=== PATIENT | female | born 1975 | race Caucasian/White ===

== ENCOUNTER 2019-01-05 10:01 | Day surgery (SDC) | payer OTHER, SELFPAY ==
[2019-01-02 15:29] VITALS: BMI 21.1
[2019-01-05] VITALS (16 sets, daily range): BP systolic 85–112; BP diastolic 31–72; PULSE 50–72; RESP 9–16; TEMP 35.9–37.3; O2SAT 97–100; BMI 21.1
[2019-01-05] MEDS: LACTATED RINGERS 1,000 ML 100 ML IV ×3 (10:35→19:53)
--- NOTE | 2019-01-05 11:19 | PM.HP.1 ---
History of Present Illness History of Present Illness Date Patient Seen: 01/05/19 Time Patient Seen: 11:19 Chief complaint: [id number] Narrative: Patient is a 43-year-old 2 para 2 who presents for a TVT (sling) and cystoscopy due to stress urinary incontinence. Patient History Medical History (Updated 01/01/19 @ 10:59 by Ashleigh Farnsworth) Asthma (Chronic ~1984) Endometriosis (Chronic) Pelvic relaxation (Acute) ALYSSA (stress urinary incontinence, female) (Acute) Surgical History (Updated 01/01/19 @ 10:59 by Ashleigh Farnsworth) Anesthesia (Resolved) History of foot surgery (Resolved ~2004) History of laparoscopy (Resolved ~1999) Family History (Updated 01/01/19 @ 11:00 by Ashleigh Farnsworth) Grandmother Diabetes mellitus Social History household members: spouse and children Smoking Status: Former smoker Family & Social History Family History (Updated 01/01/19 @ 11:00 by Ashleigh Farnsworth) Grandmother Diabetes mellitus Social History: household members spouse,children Tobacco & Substance use: Smoking Status Former smoker Meds Home Medications and Allergies Home Medications Medication Instructions Recorded Confirmed Type No Known Home Medications 10/16/18 01/02/19 History Allergies Allergy/AdvReac Type Severity Reaction Status Date / Time From WELLBUTRIN Allergy Unknown Uncoded 10/16/18 14:28 Penicillin Allergy Unknown Uncoded 10/16/18 14:28 SULFA (sulfonamide) Allergy Unknown Uncoded 10/16/18 14:28 Metoclopramide AdvReac Unknown Uncoded 10/16/18 14:28 Exam Vital Signs (past 8 hours): - 01/05/19 10:19 Temperature 98.5 F Pulse Rate 52 L Respiratory Rate 16 Blood Pressure 102/65 Pulse Oximetry 98 Oxygen Delivery Method Room Air Narrative Exam Narrative: HEENT: No thyromegaly, no anterior cervical or supraclavicular lymphadenopathy. Lungs:Clear to auscultation bilaterally, no wheezes. Cardiovascular: Regular rate and rhythm, no murmurs, rubs, or gallops. Abdomen: Well-healed laparoscopy scars. No hepatosplenomegaly. No masses palpable. External genitalia: Normal Vagina: Normal. Increased urethrovesical angle with Valsalva. Uterine prolapse, cystocele, rectocele. Cervix: Normal Bimanual exam: 6 Week size uterus. Mobile. Rectal: No masses. Assessment & Plan Assessment & Plan narrative: Assessment: 43-year-old 2 para 2 with stress urinary incontinence and increased urethrovesical angle with Valsalva Plan: TVT ( sling) and cystoscopy The risks, benefits, and alternatives to the procedure were explained to the patient. The risks including bleeding, infection, injury to the bladder, ureters, or urethra. She understands these risks and agrees to proceed. A full par Q was held and consent form was signed Time Spent With Patient Time with patient: 15-24 minutes
--- NOTE | 2019-01-05 11:21 | PM.PREOP ---
Pre-operative Note Interval Note History & Physical reviewed/Exam performed by Physician: Yes Changes to H&P: No
[2019-01-05] MEDS: CEFAZOLIN 2 GM/100 ML FROZ.PIGGY IV (11:40)
--- NOTE | 2019-01-05 11:58 | SUR.OPER ---
Lithotomy on padded OR bed, head on pillow, arms secured on padded arm boards at <90 degrees abduction. Legs secured in padded yellow fins stirrups.
[2019-01-05] MEDS: BUPIVACAINE 0.25% W/ EPI 30 ML VIAL INJ (12:00)
[2019-01-05] MEDS: SODIUM CHLORIDE 0.9% 100 ML INJ (12:31)
--- NOTE | 2019-01-05 13:00 | SUR.PHASEI ---
Pt slow to wake up, incisions to abdomen c/d/i. Taking ice chips with no nausea. Denies pain.
--- NOTE | 2019-01-05 13:38 | SUR.PHASEII ---
pt tolerating ice chips, remains very sleepy, partner is at bedside with pt, d/c instructions reviewed with verbalized understanding.
--- NOTE | 2019-01-05 14:08 | SUR.PHASEII ---
PT UP TO BEDSIDE COMMODE, UNABLE TO VOID, BLADDER SCANNER SHOWING 481CC URINE, WAITING FOR RETURN CALL FROM DR SANDRA
[2019-01-05] MEDS: HYDROCODONE/ACET 5/325 TABLET 1 TAB PO ×2 (14:31→16:32)
--- NOTE | 2019-01-05 14:38 | SUR.PHASEII ---
recieved order from dr tomlinson to straight cath pt, pt cath'd for 600cc clear yellow urine, pt stating she feels much better now but still has pain 4/10 and requesting pain pill, pt tolerating volodymyr dana and pretzels, denies any nausea.
--- NOTE | 2019-01-05 15:51 | SUR.PHASEII ---
UP TO BR, PT UNABLE TO VOID, BLADDER SCANNED FOR 178CC URINE, WAITING CALL FROM DR SANDRA.
--- NOTE | 2019-01-05 16:14 | SUR.PHASEII ---
Pt to bathroom, voided 10 ml clear urine with pale red streaks; bladder scanned for residual of >200. Dr. Joshi returned the phone call, plans to keep pt overnight with kern. Pt rated pain at 5/10, Rx obtained. Prior to giving it, she decided that she'd like to wait and see if her pain is better after having kern inserted.
--- NOTE | 2019-01-05 16:33 | SUR.PHASEII ---
Shell inserted by Marcin Larson RN; emptied 600ml of very pale, clear urine.
--- NOTE | 2019-01-05 16:41 | SUR.PHASEII ---
Report called to center; waiting for orders to transfer pt.
--- NOTE | 2019-01-05 16:51 | SUR.PHASEII ---
Pt feeling much better with bladder empty, reassured that this is within the normal range of post-op care, was tearful, but relaxed when we explained that this is why Dr. Joshi had her stay and that it sometimes happens. Pain is improving, she is relaxed and texting . Awaiting transfer orders.
--- NOTE | 2019-01-05 17:13 | SUR.PHASEII ---
1605 Received phone call from [facility] that was entering orders and that I cold bring her over. Pt to room BC1. Stood to transfer to the bed. Stable on feet. Dr Joshi talking with patient and her . No questions from staff.
--- NOTE | 2019-01-05 17:17 | PM.GYNOP.1 ---
Operative Date/Time/Diagnoses Date of procedure: 01/05/19 Time of procedure: 12:15 Pre-op diagnosis: Stress urinary incontinence Increased urethrovesical angle with Valsalva Post-op diagnosis: same Procedure & Clinicians Procedure: Procedures Operation Date: 01/05/19 11:15 Actual Procedures Side Surgeon p Tensionless Vaginal Tape w/ cystoscopy Roselyn Joshi MD Indications: Stress urinary incontinence Increased urethrovesical angle with Valsalva Surgeon: Roselyn Joshi Switchgear Repairer: Maru Herrera Anesthesia Type: General Operative Notes Findings: Increased urethrovesical angle with Valsalva TVT not in the bladder on cystoscopy Closure Type: not applicable Specimen(s): none Applied: catheter Estimated blood loss (mL): 10 Blood products transfused: none Procedure in detail: After informed consent was obtained, the patient was taken to the operating room where she was placed in the dorsal supine position. After adequate LMA general anesthesia was achieved, she was placed in the dorsal lithotomy position, and prepped and draped in the usual sterile fashion. A time-out was performed. The midline on the patient's abdomen was marked and 2 cm lateral to the midline. The patient was placed flat on the table with her thighs parallel to the floor. A rigid catheter was placed into the bladder. 100 cc of a dilute 25 cc of 0.25% Marcaine with epinephrine and 75 cc of saline were injected into the space of Retzius behind the pubic symphysis. A weighted speculum was placed into the vagina. Allis clamps were placed lateral to the urethral meatus approximately 1.5 cm from the meatus. 5 cc of 0.5% Marcaine with epinephrine were injected submucosally. A 1 cm incision was made. 10 cc of 0.25% Marcaine with epinephrine were injected along the proposed path of the TVT on each side with the bladder neck retracted away from that side. With the bladder neck retracted away from the patient's right side, the TVT was directed towards the patient's right shoulder. The urogenital diaphragm was perforated and this came up behind the pubic symphysis 2 cm lateral to the midline. The obturator was grasped with a Andrew. The TVT was pulled up. The bladder was filled with 240 cc of sterile water. A cystoscopy was performed and the bubble was seen at the dome of the bladder. There was no perforation. The cystoscope was removed. The TVT was further cinched. The patient was made to cough and there was no leakage of urine. With care not to over tighten the TVT the TVT was cut below the skin line suprapubically. The mucosa in the vagina was closed with 3 O Vicryl in a running interlocking suture. Hemostasis was achieved. Dermabond was placed over the suprapubic incisions. The weighted speculum was removed from the vagina. Approximately 100 cc of the sterile water was removed from the bladder. The catheter was removed from the bladder. Sponge, lap, and instrument counts were correct x2. The patient tolerated the procedure well, and was taken to PACU in stable condition. Complications: none Post-operative Condition: stable Disposition: PACU Plan for aftercare: Home after recovery
[2019-01-05] MEDS: IBUPROFEN 600 MG TABLET PO (18:11)
--- NOTE | 2019-01-05 18:32 | PC.NURSE ---
pt brought to BC01 via stretcher from recovery room in stable condition. VSS, remaining IVF's from PACU infusing. Dermabond glue over 2 small incision sites near pubic line, no drainage observed. F/c patent w/ clear yellow urine. Plan is to keep f/c in overnight and remove in am.
[2019-01-05] MEDS: OXYCODONE/ACETAMINOPHEN 5/325 TABLET 1 TAB PO (22:11)
[2019-01-06] MEDS: LACTATED RINGERS 1,000 ML 100 ML IV (03:59)
[2019-01-06] MEDS: IBUPROFEN 600 MG TABLET PO ×2 (05:28→11:05)
--- NOTE | 2019-01-06 05:42 | PC.NURSE ---
Patient has been sleeping since 29 with ear plugs and pillow over eyes, Resp rate was checked once an hour to assure breathing due to patient burying herself in her bed. Finally had to wake patient up and it was a startle for her to complete my assessment and vitals and remove patients catheter. We discussed the Plan for getting up and urinating by calling for help then will bladder scan her. Patient agreed she was medicated for pain also.
[2019-01-06 05:48] VITALS: BP 99/56; PULSE 57; RESP 17; TEMP 37.3; O2SAT 99
--- NOTE | 2019-01-06 05:56 | PC.NURSE ---
Patient has 2 lap sites on bilateral lower abd, both are free of erythema and drainage. Sites are sealed with dermabond.
[2019-01-06] MEDS: DOCUSATE 250 MG CAPSULE PO (07:43)
[2019-01-06] MEDS: OXYCODONE/ACETAMINOPHEN 5/325 TABLET 1 TAB PO (07:43)
[2019-01-06 08:16] VITALS: BP 110/65; PULSE 62; RESP 18; TEMP 37.1; O2SAT 99
--- NOTE | 2019-01-06 10:19 | PC.NURSE ---
discharge instructions verbalized to pt w/ her understanding. Prescription is being filled at our pharmacy. IV removed from right hand
[2019-01-06] MEDS: OXYCODONE/ACETAMINOPHEN 5/325 TABLET 2 TAB PO (10:50)
--- NOTE | 2019-01-06 12:54 | CM.DANOTE ---
DCP: assessment: note: case was received and discussed in Team Rounds. Pt is a 43 year old female who admitted to care of Dr. Joshi for a planned gynecological procedure. Payer: [facility]. A d/c to home order was put in. By time of Team Rounding was over the pt had already left for the home setting . No concerns re the d/c to home were identified by the care team staff.
--- NOTE | 2019-01-06 17:43 | PM.DS.1 ---
History of Present Illness History of Present Illness Date Patient Seen: 01/06/19 Time Patient Seen: 08:45 Chief complaint: [id number] Narrative: Patient is a 43-year-old 2 para 2 who presents for a TVT (sling) and cystoscopy due to stress urinary incontinence. Patient underwent the TVT with cystoscopy without complication. She was scheduled to go home on the same day, but had urinary retention. A Shell catheter was placed and she was kept overnight. On postop day # 1 the Shell catheter was removed at 5:30 a.m.. The patient voided within 2 hr, 400 cc of clear yellow urine, she had a 20 cc postvoid residual by scan. Her pain was well controlled. She was ambulating without assistance. No nausea or vomiting. She was tolerating a diet. She is discharged home to follow up at 2 weeks. Discharge Providers Provider Discharge Date: 01/06/19 Discharge provider: Roselyn Joshi MD Summary Hospital Course Discharge Diagnosis: TVT with cystoscopy Acute urinary retention postoperatively Hospital Course: The patient underwent a TVT with cystoscopy without complication on 01/05/2019. Postoperatively she had acute urinary retention and a Shell catheter was placed. Shell catheter was removed on the morning of postop day # 1. The patient was able to void within 2 hr and had 20 cc postvoid residual. Her voided volume was 400 cc. She is discharged home with a follow-up in 2 weeks. She is instructed to void every 2-3 hours and to set an alarm to void at least once at night. Status at Discharge Cognitive/behavioral status at discharge: oriented Functional status at discharge: independent ambulation Overall status at discharge: patient is progressing back to baseline Time Spent with Patient Time spent: Less than 30 minutes Exam Vital Signs (past 8 hours): Oxygen Delivery Method Room Air Narrative Exam Narrative: Generally: Patient is sitting up in bed, no acute distress Lungs: Clear to auscultation bilaterally Cardiovascular: Regular rate and rhythm Abdomen: Soft and flat. Good bowel sounds Incisions: Clean dry and intact with surgical glue Extremities: Negative Homans, no edema Discharge Plan Discharge Plan Patient Disposition: Home Discharge comment: Call with fever, chills, redness or drainage around the incision or bleeding vaginally more than spotting Discharge Med Rec/Prescriptions Prescriptions: New oxycodone-acetaminophen [Percocet] 5-325 mg tablet 1 tab PO Q4-6H PRN (Reason: pain) Qty: 14 RF: 0 oxycodone-acetaminophen [Percocet] 5-325 mg tablet 1 tab PO Q4-6H PRN (Reason: pain) Qty: 20 RF: 0 Follow up/Referrals: Roselyn Joshi MD [Physician] - 2 Weeks (please f/u w/ Dr. Joshi on Saturday, @ 1:45pm) Discharge Orders: Discharge (Order); Ordered 01/06/19 Ordered By: Roselyn Joshi Provider Discharge Instructions Diet: Regular Activity: No heavy lifting. Nothing more than a gal of milk Skin/Wound/Dressing Care Report to your healthcare provider any signs of infection, such as:: chills, fever, increased pain, unusual drainage and unusual redness Visit Report/Discharge Packet Instructions: Urinary Incontinence Surgery -- Sling Procedures Stand Alone Forms: Surgery Discharge Discharge Data Attending Provider: Roselyn Joshi Discharges patient from system. Discharge Date/Time: 01/06/19 11:25 Quality VTE Deep Vein Thrombosis/Pulmonary Embolism Present on Admission: No
== END 2019-01-06 11:25 | disposition home or self-care (01) ==
LOC: OR 12:21 → LABOR 17:41
PROVIDERS: Visit Provider Obstetrics & Gynecology
PROC: 0TSD0ZZ Reposition Urethra, Open Approach (ICD-10-PCS; CPT 57288; principal; 2019-01-05 11:15)
DX: N39.3 Stress incontinence (female) (male) (principal)
CPT/HCPCS: 57288; C1771; J0690; J1100; J2250; J2405; J2704; J3010

== ENCOUNTER 2019-12-06 19:09 | Emergency (ER) | payer MEDICARE, SELFPAY ==
[2019-01-05 19:39] VITALS: BMI 21.1
[2019-12-06 19:19] VITALS: BP 153/94; PULSE 84; RESP 16; TEMP 36.2; O2SAT 99; BMI 19.7
--- NOTE | 2019-12-06 19:27 | ED.EPISTAXIS ---
HPI - Epistaxis <Yuli Hardy PA-C - Last Filed: 12/06/19 21:46> General Chief complaint: Nasal Problem Stated complaint: facial injury a few days ago, nose fluid drainage Time Seen by Provider: 12/06/19 19:24 Source: patient Mode of arrival: Ambulatory History of Present Illness HPI Narrative: 44-year-old patient presents to the emergency department referred here by her primary care doctor after a telemedicine visit. She has had a constant 5/10 headache, facial pain and pressure, daily minor nose bleeds and recently some clear nasal discharge since she hit her face and nose on a counter on 3 days ago. She said she was Juggling her children and multiple things in her arms and she lost her balance and fell forward into a wooden counter it hit underneath her nose and then hit her forehead. She then fell down to the ground. She says her vision was black but she could hear everything around her. She then remained confused for a few minutes according to her memory and other people present at the time. Since that time she has had an ongoing intense achy headache and intense sinus pressure in the front of her head she had some swelling of her nose that has since improved, and she also feels like her vision has been a little bit different as if her eyes are uncomfortable with trying to focus. She had a significant nose bleed at the time of the event, and since then has had more minor, daily nose bleeds. Yesterday and today she had some clear nasal discharge in addition to minor nose bleeds. She notes she has had multiple minor concussions previously, none recent, also notes that when she was a child she fell 40 ft and was unconscious for a period of time and had a long recovery that included some long-term memory loss. She denies blurred vision, coordination difficulty, balance difficulty, nausea or vomiting, ear pain or discharge, active nosebleed, neck pain, syncope, other injury, or any other symptoms MD complaint: epistaxis and other (Head injury nasal injury) Location: bilateral nostril Onset (ago): day(s) (Three) Duration: intermittent and now resolved Context: trauma Associated symptoms: headache and sinus pain Treatment prior to arrival: nose pinching, head tilted back and other (No active nose bleed on presentation to emergency department today) Related Data Home Medications Medication Instructions Recorded Confirmed ibuprofen PO PRN 01/19/19 02/17/19 Previous Rx's Medication Instructions Recorded ysbxyxizne-gjpbuxcmihrvw-zpol 1 tab PO Q4H PRN #20 tab 12/06/19 Allergies Allergy/AdvReac Type Severity Reaction Status Date / Time From WELLBUTRIN Allergy Unknown Uncoded 12/06/19 19:23 Penicillin Allergy Unknown Uncoded 12/06/19 19:23 SULFA (sulfonamide) Allergy Unknown Uncoded 12/06/19 19:23 Metoclopramide AdvReac Unknown Uncoded 12/06/19 19:23 Review of Systems <Yuli Hardy PA-C - Last Filed: 12/06/19 21:46> Review of Systems Narrative: GENERAL: Denies chills, fatigue, malaise, fever, sweats. HEENT: Positive for sinus pain, nose pain, nosebleeds, nasal discharge, difficulty focusing with eyes, sinus pressure negative for ear pain, sore throat, difficulty swallowing, dizziness. RESPIRATORY: Denies dyspnea, cough, wheezing, hemoptysis, sputum. CARDIOVASCULAR: Denies chest pain, palpitations, orthopnea, edema, GASTROINTESTINAL: Denies nausea, vomiting, abdominal pain, diarrhea, constipation, melena. : Denies dysuria, frequency, incontinence, hematuria, urinary retention. MUSCULOSKELETAL: denies weakness, joint pain, or bony pain SKIN: Denies rash, skin lesions, or other NEUROLOGIC: Denies weakness, positive for headache, negative for numbness, change in speech, positive for brief episode of confusion after head injury on , seizures, incoordination. PSYCHIATRIC: No concerning psychosocial issues. 12 point review of systems is negative except for those stated above Patient History <Yuli Hardy PA-C - Last Filed: 12/06/19 21:46> Medical History Asthma (Chronic ~1984) Endometriosis (Chronic) Pelvic relaxation (Acute) ALYSSA (stress urinary incontinence, female) (Acute) Surgical History Anesthesia (Resolved) History of foot surgery (Resolved ~2004) History of laparoscopy (Resolved ~1999) History of stress incontinence procedure using tension free vaginal tape (Acute ~01/05/19) Family History Grandmother Diabetes mellitus Social History household members: spouse and children Smoking Status: Current every day smoker alcohol intake: never Smoking Status: Current every day smoker alcohol intake frequency: a few times a month Substance Use Type: marijuana Exam <Yuli Hardy PA-C - Last Filed: 12/06/19 21:46> Narrative Exam Narrative: GENERAL: 44 year old patient appears stated age. Well-nourished, well-developed patient, in mild distress. HEAD: There is mild bilateral swelling of the soft tissue of the nose. No hematoma noted. Atraumatic. Normocephalic. EYES: Pupils equal round and reactive. Extraocular motions intact except as below in neuro. No scleral icterus. No injection or drainage. ENT: Nose without bleeding, purulent drainage, nose is extremely tender to palpation, nasal passages are clear, visualized turbinates are pink, frontal sinuses are tender to palpation bilaterally, maxillary sinuses are nontender. Throat without erythema, tonsillar hypertrophy or exudate. Uvula midline. Airway patent. NECK: Trachea midline. Non tender, negative C-spine process tenderness, full active range of motion pain free CARDIOVASCULAR: Regular rate and rhythm without murmurs, gallops, or rubs. RESPIRATORY: Clear to auscultation. Breath sounds equal bilaterally. No wheezes, rales, or rhonchi. GASTROINTESTINAL: Abdomen soft, non-tender, nondistended. EXTREMITIES: No edema or joint tenderness. BACK: Nontender without deformity or crepitance. No flank tenderness. NEURO: AOx3. Strength is intact upper and lower extremities 5/5 bilaterally, sensation is intact. Cranial nerves are intact, with exception of extraocular movements, she has pain and difficulty completing vertical and lateral gaze bilaterally. No nystagmus. SKIN: No contusion or hematoma noted of the face or head. No rash or erythema of visible areas Initial Vital Signs Initial Vital Signs: Vital Signs Temperature 97.1 F L 12/06/19 19:19 Pulse Rate 84 12/06/19 19:19 Respiratory Rate 16 12/06/19 19:19 Blood Pressure 153/94 H 12/06/19 19:19 Pulse Oximetry 99 12/06/19 19:19 <DO Carlotta Moffett Last Filed: 12/06/19 21:49> Initial Vital Signs Initial Vital Signs: Vital Signs Temperature 97.1 F L 12/06/19 19:19 Pulse Rate 84 12/06/19 19:19 Respiratory Rate 16 12/06/19 19:19 Blood Pressure 153/94 H 12/06/19 19:19 Pulse Oximetry 99 12/06/19 19:19 Scores <DORON Avendano Last Filed: 12/06/19 21:46> GCS [place] coma scale eye opening: Spontaneous Diane coma scale verbal response: Orientated [place] coma scale motor response: Obey commands Diane coma scale total score: 15 Nexus Score for C-Spine Focal Neurologic deficit present: No Midline spinal tenderness present: No Altered level of conciousness present: No Intoxication present: No Distracting Injury Present: No Nexus Criteria for C-spine: 0 Course <DORON Avendano Last Filed: 12/06/19 21:46> Course Course Narrative: Spoke with ED attending Dr. Juarez about this patient's presentation and exam, agreed that CT facial bones and Head non-contrast is appropriate. Orders Ordered: ED Orders 12/06/19 20:04 CT facial bones wo con Stat CT head/brain wo con Stat Discontinued Medications Ketorolac Tromethamine (Toradol) 15 mg IM NOW ONE Stop: 12/06/19 21:01 Last Admin: 12/06/19 21:11 Dose: 15 mg Documented by: CAMPBELL Vital Signs Vital signs: Vital Signs - 8 hr 12/06/19 19:19 12/06/19 21:19 Temperature 97.1 F L Pulse Rate 84 75 Respiratory Rate 16 16 Blood Pressure 153/94 H 136/90 Pulse Oximetry 99 100 <DO Carlotta Moffett Last Filed: 12/06/19 21:49> Orders Ordered: ED Orders 12/06/19 20:04 CT facial bones wo con Stat CT head/brain wo con Stat Discontinued Medications Ketorolac Tromethamine (Toradol) 15 mg IM NOW ONE Stop: 12/06/19 21:01 Last Admin: 12/06/19 21:11 Dose: 15 mg Documented by: CAMPBELL Vital Signs Vital signs: Vital Signs - 8 hr 12/06/19 19:19 12/06/19 21:19 Temperature 97.1 F L Pulse Rate 84 75 Respiratory Rate 16 16 Blood Pressure 153/94 H 136/90 Pulse Oximetry 99 100 MDM - Epistaxis <Yuli Hardy PA-C - Last Filed: 12/06/19 21:46> Differential Diagnosis Differential diagnosis: Likely nasal bone fracture, anterior epistaxis, posterior epistaxis and other (orbital fracture, brain bleed, concussion) Medical Records Attestation: I reviewed the patient's medical records. Imaging Data Ct facial bones: Attestation: I personally reviewed and interpreted this imaging study as follows: Radiologist's Impression: [address] [address] [address] Scan Report Signed Patient: Blanca Braxton [facility] [place]#: [id number] : 1975Acct:[id number] Age/Sex: 44 / FDate of Service: 12/06/19 Loc: ED Accession Number: [id number] Procedure: CT facial bones wo con Ordering Provider: Yuli Hardy P.A-C PROCEDURE: CT FACIAL BONES WO CON INDICATIONS: face injury, headache, epistaxis, vision changes TECHNIQUE: Noncontrast 2.5 mm thick axial images acquired from the mandible through the frontal sinuses, with coronal and sagittal reformatting. For radiation dose reduction, the following was used: automated exposure control, adjustment of mA and/or kV according to patient size. COMPARISON: None. FINDINGS: Image quality: Excellent. Bones and teeth: Orbital denson are intact. Sinus denson show no fracture or deformity. Nasal bones and septum are intact. Visualized portions of the mandible demonstrate no fractures or subluxation. Zygomatic arches are intact. Pterygoid plates are intact. Visualized portions of the skull base and auditory canals are intact. Sinuses: Paranasal sinuses are aerated, without fluid levels, mucosal thickening, or mucoceles. Mastoid air cells are aerated. Soft tissues: No edema, masses, or fluid collections. No enlarged lymph nodes. No soft tissue lacerations or debris. Vascular: Visualized vascular structures appear normal in the absence of contrast. Bony vascular foramina and canals are intact. IMPRESSION: No fracture. Dictated by: Parisa Siegel MD, PhD on 12/06/2019 at 20:38 Approved by: Parisa Siegel MD, PhD on 12/06/2019 at 20:41 CT scan - head: Attestation: I personally reviewed and interpreted this imaging study as follows: Radiologist's Impression: [address] [address] [address] Scan Report Signed Patient: Blanca Braxton [facility]#: [id number] : 1975Acct:[id number] Age/Sex: 44 / FDate of Service: 12/06/19 Loc: ED Accession Number: [id number] Procedure: CT head/brain wo con Ordering Provider: Yuli Hardy P.A-C PROCEDURE: CT HEAD/BRAIN WO CON INDICATIONS: head injury, headache, vision changes TECHNIQUE: Noncontrast 4.5 mm thick angled axial sections acquired from the foramen magnum to the vertex, with coronal and sagittal reformats. For radiation dose reduction, the following was used: automated exposure control, adjustment of mA and/or kV according to patient size. COMPARISON: None. FINDINGS: Image quality: Limited by beam hardening artifact related to metallic earrings. CSF spaces: Basal cisterns are patent. No extra-axial fluid collections. The ventricles are symmetric in size and shape. Brain: No intracranial bleeds or masses. There is cerebral volume loss for age, with resultant ventricular and sulcal prominence. There are periventricular and deep white matter chronic small vessel ischemic changes. There is intracranial internal carotid artery atherosclerosis. Skull and face: Calvarium and visualized facial bones appear intact, without suspicious lesions. Sinuses: Visualized sinuses and mastoids are clear. IMPRESSION: No acute intracranial disease process. Dictated by: Parisa Siegel MD, PhD on 12/06/2019 at 20:36 Approved by: Parisa Siegel MD, PhD on 12/06/2019 at 20:38 [facility] Narrative Medical decision making narrative: This is an uncomfortable appearing 44-year-old with no significant medical history other than previous concussions including 1 as a child with long-term memory loss who presents to the emergency department complaining of ongoing 5/10 headache, difficulty focusing with her eyes, and daily nosebleeds since she hit her head 3 days ago. Neuro exam is unremarkable with exception of EOMs, difficulty with lateral and vertical gaze second to pain. Given her ongoing headache, ongoing nose bleeds and previous head injuries, CT facial bones and CT head noncontrast were performed, these were both negative for any acute process, fracture or bleed. Patient's headache was treated with Toradol in the emergency department, she was prescribed Fioricet for headaches, discussed the findings of the exam is, plan for follow-up with her primary care physician. Discussed concussion and possible ongoing symptoms related to this. Emergency return precautions provided, all questions answered. Discharge Plan Departure Patient Disposition: Home Clinical Impression: Frontal sinus pain, Pain of nose Head injury due to trauma Qualifiers: Encounter type: initial encounter Qualified Code(s): S09.90XA - Unspecified injury of head, initial encounter Headache Qualifiers: Headache type: post-traumatic Headache chronicity pattern: acute headache Intractability: not intractable Qualified Code(s): G44.319 - Acute post-traumatic headache, not intractable Concussion Qualifiers: Encounter type: initial encounter Loss of consciousness presence/duration: without LOC Qualified Code(s): S06.0X0A - Concussion without loss of consciousness, initial encounter Discharge Date/Time: 12/06/19 21:27 Instructions: DI for Concussion, DI for Nosebleed, DI for Post-traumatic Headache, DI for Closed Head Injury Activity Restrictions/Additional Instructions: Thank you for letting us to be part of your care in the emergency department today. Based on your history and your exam we did do CT scan of your facial bones and of your brain today. This did not show any evidence of fractures or bleeds in your brain or any other acute process that would require further workup today or admission to the hospital. You may continue to have problems with headaches as I suspect he sustained a concussion when you hit your head on . You can continue to take Tylenol and ibuprofen for pain but I have also provided prescription for headache medicine called Fioricet which may provide better relief if needed. Please continue to monitor for any new and concerning symptoms including changes in your vision, balance issues, worsening headache, fever, nausea or vomiting or any other symptoms of concern. There is no evidence of an emergent or life threatening illness at this time, but follow up with your doctor in 1-2 days is recommended nonetheless to continue to rule out serious underlying causes of your symptoms. Please call the office for an appointment. Please return to the Emergency Department for any worsening or persistent symptoms. Please take medications as directed. Prescriptions: New tquydcvnwf-yktdtwaugrgty-ajfs 50-325-40 mg tablet 1 tab PO Q4H PRN (Reason: pain) Qty: 20 RF: 0 No Action ibuprofen PO PRNRF: 0 Referrals: Isaac Acosta MD [Primary Care Provider] - <Jones Juarez DO - Last Filed: 12/06/19 21:49> [facility] Dr Juarez Co-Sign Statement: I was available for consultation during this patient's emergency department visit. This chart is signed by myself for administrative purposes only. I did not have direct contact with this patient during this visit. They were seen independently by the APC.
--- NOTE | 2019-12-06 20:04 | DI.CT.S_ITS ---
PROCEDURE: CT FACIAL BONES WO CON INDICATIONS: face injury, headache, epistaxis, vision changes TECHNIQUE: Noncontrast 2.5 mm thick axial images acquired from the mandible through the frontal sinuses, with coronal and sagittal reformatting. For radiation dose reduction, the following was used: automated exposure control, adjustment of mA and/or kV according to patient size. COMPARISON: None. FINDINGS: Image quality: Excellent. Bones and teeth: Orbital denson are intact. Sinus denson show no fracture or deformity. Nasal bones and septum are intact. Visualized portions of the mandible demonstrate no fractures or subluxation. Zygomatic arches are intact. Pterygoid plates are intact. Visualized portions of the skull base and auditory canals are intact. Sinuses: Paranasal sinuses are aerated, without fluid levels, mucosal thickening, or mucoceles. Mastoid air cells are aerated. Soft tissues: No edema, masses, or fluid collections. No enlarged lymph nodes. No soft tissue lacerations or debris. Vascular: Visualized vascular structures appear normal in the absence of contrast. Bony vascular foramina and canals are intact. IMPRESSION: No fracture. Dictated by: Parisa Siegel MD, PhD on 12/06/2019 at 20:38 Approved by: Parisa Siegel MD, PhD on 12/06/2019 at 20:41
--- NOTE | 2019-12-06 20:04 | DI.CT.S_ITS ---
PROCEDURE: CT HEAD/BRAIN WO CON INDICATIONS: head injury, headache, vision changes TECHNIQUE: Noncontrast 4.5 mm thick angled axial sections acquired from the foramen magnum to the vertex, with coronal and sagittal reformats. For radiation dose reduction, the following was used: automated exposure control, adjustment of mA and/or kV according to patient size. COMPARISON: None. FINDINGS: Image quality: Limited by beam hardening artifact related to metallic earrings. CSF spaces: Basal cisterns are patent. No extra-axial fluid collections. The ventricles are symmetric in size and shape. Brain: No intracranial bleeds or masses. There is cerebral volume loss for age, with resultant ventricular and sulcal prominence. There are periventricular and deep white matter chronic small vessel ischemic changes. There is intracranial internal carotid artery atherosclerosis. Skull and face: Calvarium and visualized facial bones appear intact, without suspicious lesions. Sinuses: Visualized sinuses and mastoids are clear. IMPRESSION: No acute intracranial disease process. Dictated by: Parisa Siegel MD, PhD on 12/06/2019 at 20:36 Approved by: Parisa Siegel MD, PhD on 12/06/2019 at 20:38
--- NOTE | 2019-12-06 20:16 | PC.NURSE ---
Patient reports hit nose on counter on . At time of incident fell to ground but denies LOC. At home has applied ice packs on and off. Comes to ED today because of continued nose bleeds and clear fluid coming out of nose. At time of assessment no discharge noted in either nare. Patient denies inflammation and no bruising noted. Patient affirms headache rated 7/10 and head pressure. Pupils equal and reactive. Patient alert and oriented x4.
[2019-12-06] MEDS: KETOROLAC 60 MG/2 ML VIAL 15 MG IM (21:11)
[2019-12-06 21:19] VITALS: BP 136/90; PULSE 75; RESP 16; O2SAT 100
== END 2019-12-06 21:27 | disposition home or self-care (01) ==
PROVIDERS: Emergency Provider Student in an Organized Health Care Education/Training Program; PCP Family Medicine; Referring Provider Family Medicine
DX: S06.0X0A Concussion without loss of consciousness, initial encounter (principal); G44.319 Acute post-traumatic headache, not intractable; J34.89 Other specified disorders of nose and nasal sinuses; W22.8XXA Striking against or struck by other objects, initial encounter
CPT/HCPCS: 70450; 70486; 96372; 99284; J1885

== ENCOUNTER → 2020-07-06 13:56 | Outpatient (CLI) | payer MEDICARE, SELFPAY ==
[2019-01-05 19:39] VITALS: BMI 21.1
[2020-07-06 16:18] LABS: COVID19 -Nasal RAPID Negative (Negative)
== END ==
PROVIDERS: PCP Family Medicine; Visit Provider Obstetrics & Gynecology
DX: Z01.812 Encounter for preprocedural laboratory examination (principal); Z20.822 Contact with and (suspected) exposure to COVID-19
CPT/HCPCS: 87635

== ENCOUNTER 2020-07-08 13:41 | Inpatient (IN) | payer MEDICARE, SELFPAY ==
[2019-01-05 19:39] VITALS: BMI 21.1
[2020-07-07] VITALS (44 sets, daily range): BP systolic 79–123; BP diastolic 38–70; PULSE 60–100; RESP 8–20; TEMP 35.9–36.8; O2SAT 90–100; BMI 20.5
--- NOTE | 2020-07-07 | PATH_ITS ---
[facility] Accession Number: [id number] . 01 Material submitted: . UTERUS AND BILATERAL FALLOPIAN TUBES - UTERUS AND BILATERAL FALLOPIAN TUBES . 02 Diagnosis: Uterus and Bilateral Fallopian Tubes, Hysterctomy and Bilateral Salpingectomy (Weight 146 grams): Cervix with patchy parakeratosis, consistent with clinical impression of prolapse. Mildly inflamed endocervix; negative for glandular dysplasia or malignancy. Weakly proliferative endometrium; negative for glandular hyperplasia, cytologic atypia, or malignancy. Myometrium with no significant histomorphologic abnormality. Uterine serosa with no significant histomorphologic abnormality. Right fallopian tube with no significant histomorphologic abnormality. Left fallopian tube with no significant histomorphologic abnormality. [facility] 07/12/2020 1043 Local . 02 Electronically signed: . Sweetie Cruz MD, Pathologist NPI- [id number] . 01 Gross description: . The specimen is received in formalin, labeled uterus and bilateral fallopian tubes, and consists of a 146 g uterus, cervix, and bilateral attached fallopian tubes. The specimen measures 10.0 cm from superior fundus to cervix by 5.5 cm from cornu to cornu by 4.5 cm from anterior to posterior. The serosa is tavera-pink and smooth. The tavera-pink, wrinkled ectocervix measures 5.0 x 4.5 cm. There is a 1.2 x 0.5 cm os. There is a tavera-pink herringbone endocervical mucosa. The endometrial cavity measures 4.5 x 2.0 cm and displays a tavera-pink, hemorrhagic, glistening endometrium measuring 0.2 cm in thickness. The myometrium is tavera-pink and diffusely trabeculated, measuring 2.1 cm in thickness. The right fallopian tube measures 8.5 cm in length by 1.0 cm in diameter. The left fallopian tube measures 7.5 cm in length by 1.0 cm in diameter. The serosa is pink-purple and smooth. Sectioning reveals a tavera-pink mucosa and a lumen measuring 0.5 cm in diameter. Film Reader sections are submitted. . A1: Anterior cervix. A2: Posterior cervix. A3-A4: Anterior uterus, full-thickness cross-sections. A7-A8: Right fallopian tube, central cross-sections and bisected fimbria. A9-A10: Left fallopian tube, bisected fimbria and central cross-sections. ([id number]) /[facility] 07/09/2020 [facility]2 Local . 02 Pathologist provided ICD-10: N81.4, N81.10, N81.6 . 02 CPT . 019249 Performed at: 01 [facility] [address] [id number] MD Silver Hays MD Phone: [phone] Performed at: 02 [facility] [address] [place], [place] [id number] MD Lili Freed MD Phone: [phone]
[2020-07-07] MEDS: LACTATED RINGERS 1,000 ML 42 ML IV ×5 (09:45→16:35)
--- NOTE | 2020-07-07 10:14 | PM.PREOP ---
Pre-operative Note COVID-19 COVID-19 status: Negative Result date/Date tested (Pos, Neg/Pending): 07/06/20 Interval Note History & Physical reviewed/Exam performed by Physician: Yes Changes to H&P: No H&P completed within 30 days and has changed as indicated here:: 07/06/20
[2020-07-07] MEDS: CEFAZOLIN 2 GM/100 ML FROZ.PIGGY IV (10:16)
--- NOTE | 2020-07-07 10:53 | SUR.OPER ---
Lithotomy on padded OR bed. [place] Pad Positioner under torso. Head on gel donut, arms padded and tucked at sides. Legs secured in padded yellow fins stirrups.
[2020-07-07] MEDS: BUPIVACAINE 0.25% W/ EPI (PF) 10 ML VIAL 20 ML INJ (11:38)
--- NOTE | 2020-07-07 12:48 | P.OP_ITS ---
Operative Date/Time/Diagnoses Date of procedure: 07/07/20 Time of procedure: 12:48 Pre-op diagnosis: Uterine prolapse, cystocele, and rectocele Post-op diagnosis: same Procedure & Clinicians Procedure: Procedures Operation Date: 07/07/20 10:15 Actual Procedures Side Surgeon p Laparoscopic Assisted Vag Hysterectomy w/ bilateral salpingectomy, Not Applicable Roselyn Joshi MD s Anterior/Posterior repair, sacrospinous ligament fixation Not Applicable Roselyn Joshi MD Indications: Uterine prolapse Cystocele and rectocele Surgeon: Roselyn Joshi Container Finishing Inspector: Katya Delvalle Anesthesia Type: General and Local Operative Notes Findings: Eight week size prolapsed uterus Second-degree cystocele Third-degree rectocele Normal appendix Normal liver Normal ovaries Normal tubes Closure Type: primary Specimen(s): left tube, right tube and uterus Applied: catheter (To continuous drainage) Estimated blood loss (mL): 75 Blood products transfused: none Procedure in detail: The patient was taken to the operating room where she was placed in the dorsal supine position. After adequate general endotracheal anesthesia was achieved, she was placed in the dorsal lithotomy position, and prepped and draped in the usual sterile fashion. A time-out was performed. A bivalve speculum was placed into the vagina, and a single-tooth tenaculum was placed on the anterior lip of the cervix. The cervical os was sequentially dilated until the ZUMI uterine manipulator could pass easily into the endometrial cavity. The single-tooth tenaculum was removed from the anterior lip of the cervix, and the bivalve speculum was removed from the vagina. Attention was then turned to the abdomen where 6 mL of half percent Marcaine with epinephrine were injected in the umbilical fold. A 5 mm incision was made. The Veress needle was placed into the peritoneal cavity, and its placement confirmed by aspiration and drop test. The abdominal cavity was insufflated with 4 L of CO2. The Veress needle was removed, and a 5 mm trocar was placed without difficulty. Initial inspection of the pelvis revealed the findings noted above. 2 other incisions were made midway between the pubic symphysis and umbilicus 4 cm lateral to the midline. These were 5 mm incisions. Two 5 mm trochars were placed under direct visualization. The right tube and ovary were grasped with an atraumatic grasper. The mesosalpinx on the right side was cauterized and cut with plasma kinetic. The round ligament and broad ligament were cauterized and cut. This was continued to the level of the uterine arteries. This was repeated on the patient's left side. The instruments were removed from the abdomen. The CO2 was allowed to escape. The trochars were covered with sterile towels. Attention was then turned to the vagina where the ZUMI uterine manipulator was removed from the uterus. The cervix was grasped with a 4 tooth tenaculum. 10 mL of quarter percent Marcaine with epinephrine were injected circumferentially around the cervix. The cervix was circumscribed. The bladder and rectum were dissected off the lower uterine segment and cervix with an open moistened Ray-Otf. The peritoneum was entered sharply with the Metzenbaum scissors anteriorly and a Beatrice placed. The peritoneum was entered posteriorly with the Metzenbaum scissors and the long weighted speculum was placed into the posterior cul-de-sac. The uterosacral cardinal ligament complexes were clamped, transected, and suture ligated with 0 Vicryl. These were attached to hemostat. The uterine arteries were clamped, transected, and suture ligated with 0 Vicryl. The uterus was handed off for specimen with the tubes and ovaries. The peritoneum was closed with a pursestring suture with 2-0 Vicryl. The vaginal cuff was closed with 0 Vicryl with a series of simple interrupted sutures. The tagged sutures were cut. 2 Allis clamps were placed at the apex of the cystocele. 6 mL of half percent Marcaine with epinephrine were injected and an incision was made with a #10 blade between the 2 Allis clamps. Wide Allis clamps were placed on the midline of the cystocele approximately 7. The mucosa was undermined using the Metzenbaum scissors and the mucosa incised in the midline moving the wide Allis clamps to the edges of the mucosa. The mucosa was dissected off the underlying fascia using an open moistened Ray-Otf and a #10 blade. The fascia was reapproximated with 0 Vicryl with a series of horizontal mattress sutures. The excess vaginal mucosa was excised. The mucosa was closed using simple interrupted sutures with 2-0 Vicryl including the underlying fascia to close the space. The weighted speculum was removed from the vagina. Allis clamps were placed at the mucocutaneous junction at the introitus. 6 mL of half percent Marcaine with epinephrine were injected. An incision was made with a #10 blade between the 2 Allis clamps, and a triangular piece of skin and underlying subcutaneous tissue was removed. Allis clamps were placed in the midline of the rectocele. 10 mL of half percent Marcaine with epinephrine were injected submucosally. The mucosa was undermined using the Metzenbaum scissors and the mucosa incised in the midline, moving the wide Allis clamps to the mucosal edges. The underlying fascia was dissected off of the mucosa using an open moistened Ray-Otf and a #10 blade. The perirectal space was dissected out bluntly. The ischial spine was located. The sacral spinous ligament was located. Using the Capio needle the Prolene suture was placed into the sacral spinous ligament. It was then attached to the vaginal apex. The fascia was reapproximated using 0 Vicryl with a series of horizontal mattress sutures. The excess vaginal mucosa was excised. The mucosa was closed using a series of simple interrupted sutures with 2-0 Vicryl including the underlying fascia to close the space. On the perineum 0 Vicryl was used to reapproximate the levator muscle. The subcutaneous layer was closed with 2-0 Vicryl. The skin was closed with 2-0 chromic in a subcuticular fashion. Hemostasis was achieved. A Betadine moistened vaginal pack was placed into the vagina. A rectal exam was done and there were no sutures palpable in the rectum. The urine was clear. Sponge, lap, and instrument counts were correct x-2. The patient tolerated the procedure well, was taken to PACU in stable condition. The retail store assistant during this case around the camera during the laparoscopy portion of hysterectomy. She did the right side of the uterus and right tube. Vaginally she retracted on either side while the remainder of the uterus was being removed. On the anterior and posterior repair she retracted and provided adequate visualization. She retracted during the sacral spinous ligament fixation. Complications: none Post-operative Condition: stable Disposition: PACU Plan for aftercare: To acute care after recovery
[2020-07-07] MEDS: fentaNYL 100 MCG/2 ML INJ IV ×2 (13:33→13:53)
[2020-07-07] MEDS: OXYCODONE/ACETAMINOPHEN 5/325 TABLET 1 TAB PO (13:50)
[2020-07-07] MEDS: ONDANSETRON 4 MG/2 ML INJ IV ×3 (13:57→22:02)
--- NOTE | 2020-07-07 14:41 | SUR.PHASEI ---
PACU NOTE; 1420: EULALIA PAD CHECK, COPIOUS BLEEDING TO SHEETS, BLANKETS AND SATURATED EULALIA-PAD. NOTIFIED ADDITIONAL PACU STAFF STAT. MD NOTIFIED STAT. MD AT BEDSIDE PROMPTLY. EVALUATED BLEEDING, ORDER FOR STAT HH AND TYPE AND CROSS FOR 2 U PRBC TO HOLD. MD PLANS TO TAKE PATIENT BACK TO OR. MANAGER CASH NOTIFIED ANESTHESIOLOGIST WHO IS ON HIS WAY. VS HAVE BEEN ON STABLE HYPOTENSIVE SIDE WITH IVF WIDE OPEN. 2CD IV STARTED TO LEFT AC. LAB HERE TO DRAW BLOOD. BLEEDING APPEARS TO HAVE SUBSIDED SINCE BLANKETS AND EULALIA-PAD CHANGED. CURRENT BP 102/49 WITH MAP 72. BOTH IV'S WITH FLUIDS LR WIDE OPEN. KEEN EMPTIED OF 250 URINE.
--- NOTE | 2020-07-07 14:43 | PM.EVENT ---
Event Note Date Patient Seen: 07/07/20 Time Patient Seen: 14:43 Event Note: Call to PACU for bright red bleeding and low blood pressure. Nurse reports that when she came back from the operating room she had nothing on a pad. 90 minutes later she had a large amount of blood with clots on the pad and checks underneath. Blood pressure dropped to 90s over 30s. Second IV put in. Fluids running wide open. Assessment: Postoperative bleeding Plan: Back to the operating room for examination under anesthesia and ligation of bleeder.
[2020-07-07] MEDS: SODIUM CHLORIDE 0.9% 1,000 ML 1000 ML IV (14:45)
[2020-07-07 14:58] LABS: Hemoglobin 8.5 g/dL (12.0-16.0)
--- NOTE | 2020-07-07 15:35 | SUR.OPER ---
Lithotomy on padded OR bed, head on pillow, arms secured on padded arm boards at <90 degrees abduction. Legs secured in padded yellow fins stirrups.
[2020-07-07] MEDS: LACTATED RINGERS 1,000 ML 100 ML IV ×3 (15:40→18:28)
[2020-07-07] MEDS: TRANEXAMIC ACID 1,000 MG in SODIUM CHLORIDE 0.9% 100 ML 400 ML IV (16:17)
[2020-07-07 16:31] LABS: Hematocrit 25.5 % (36-46); Hemoglobin 8.4 g/dL (12.0-16.0)
--- NOTE | 2020-07-07 17:37 | P.OP_ITS ---
Operative Date/Time/Diagnoses Date of procedure: 07/07/20 Time of procedure: 17:37 Pre-op diagnosis: Brisk vaginal bleeding Low blood pressure Post-op diagnosis: same Procedure & Clinicians Procedure: Procedures Operation Date: 07/07/20 10:15 Actual Procedures Side Surgeon p Laparoscopic Assisted Vag Hysterectomy w/ bilateral salpingectomy, Not Applicable Roselyn Joshi MD s Anterior/Posterior repair, sacrospinous ligament fixation Not Applicable Roselyn Joshi MD Operation Date: 07/07/20 14:45 Actual Procedures Side Surgeon p Exam Under Anesthesia DIE CASTING MACHINE OPERATOR - re-open incision, ligated bleeder, evacuation of clot Roselyn Joshi MD Indications: Brisk vaginal bleeding Low blood pressure Surgeon: Roselyn Joshi Motorboat Mechanic Inboard/Outboard: Maru Herrera Anesthesia Type: General Operative Notes Findings: Brisk bleeding from the posterior wall of the vagina Large amount of clot in the space between the fascia and mucosa as well as perirectal space Closure Type: primary Specimen(s): none Applied: catheter (To continuous drainage) Estimated blood loss (mL): 200 Blood products transfused: none Procedure in detail: .After informed consent was obtained, the patient was taken to the operating room where she was placed in the dorsal supine position. After adequate general endotracheal anesthesia was achieved, she was placed in the dorsal lithotomy position, and prepped and draped in the usual sterile fashion. A time-out was performed. A rectal exam was performed and there were no sutures into the rectum. Gloves were changed. The vaginal packing was removed from the vagina with a large amount clot. The sutures on the closure of the perineum as well as the posterior vaginal mucosa were opened and removed. Irrigation was performed with a large amount of clot in the perirectal space. There was a brisk bleeder on the posterior fascia. This was ligated with 2 0 Vicryl with a [id number] suture for hemostasis. The area was observed and there was no new bleeding noted. The posterior mucosa was closed with simple interrupted sutures with 2-0 Vicryl including the underlying fascia to close the space. On the perineum 0 Vicryl was used to reapproximate the levators. Two 0 Vicryl was used to close the subcutaneous layer. Two 0 chromic was used in a subcuticular fashion to close the skin. A Betadine moistened vaginal packing was placed into the vagina. Sponge, lap, and instrument counts were correct x2. The patient tolerated the procedure well, and was taken to PACU in stable condition. Complications: none Post-operative Condition: stable Disposition: PACU Plan for aftercare: To acute care after recovery
[2020-07-07] MEDS: KETOROLAC 30 MG/ML VIAL IV ×2 (18:28→23:37)
[2020-07-07] MEDS: ACETAMINOPHEN 325 MG TABLET 650 MG PO ×2 (18:28→23:36)
[2020-07-07] MEDS: OXYCODONE IR 5 MG TABLET PO (19:23)
[2020-07-07] MEDS: HYDROMORPHONE 0.5 MG INJ 0.1 MG IV (22:02)
[2020-07-08] VITALS (9 sets, daily range): BP systolic 79–117; BP diastolic 38–70; PULSE 72–86; RESP 14–20; TEMP 36.2–36.8; O2SAT 97–100
[2020-07-08] MEDS: DOCUSATE 250 MG CAPSULE PO ×3 (01:03→21:21)
[2020-07-08] MEDS: OXYCODONE IR 5 MG TABLET PO ×5 (01:03→21:21)
[2020-07-08] MEDS: LACTATED RINGERS 1,000 ML 100 ML IV ×2 (04:24→17:44)
[2020-07-08] MEDS: ACETAMINOPHEN 325 MG TABLET 650 MG PO ×3 (05:12→17:23)
[2020-07-08] MEDS: KETOROLAC 30 MG/ML VIAL IV ×2 (05:12→11:43)
[2020-07-08 05:30] LABS: Add Manual Diff / Slide Review NO; Basophils Absolute Auto 0 /uL (0-100); Basophils Percent Auto 0.2 % (0-2); Eosinophils Absolute Auto 0 /uL (0-450); Hemoglobin 7.3 g/dL (12.0-16.0); Lymphocytes Absolute Auto 700 /uL (1100-4500); Lymphocytes Percent Auto 4.3 % (25-40); Mean Corpuscular HGB Conc 32.9 % (30-36); Mean Corpuscular Hemoglobin 29.1 PG (26-34); Mean Corpuscular Volume 88.6 fL (80-100); Monocytes Absolute Auto 1000 /uL (0-900); Monocytes Percent Auto 5.8 % (3-14); Neutrophils Absolute Auto 15400 /uL (1500-7000); Neutrophils Percent Auto 89.7 % (50-75); Platelet Count 271 X10^3/uL (150-400); Red Blood Cell Count 2.52 X10^6/uL (4.0-5.2); White Blood Cell Count 17.2 X10^3/uL (4.5-11.0)
[2020-07-08 05:38] LABS: Hematocrit 22.3 % (36-46)
[2020-07-08] MEDS: HYDROMORPHONE 0.5 MG INJ 0.1 MG IV ×4 (06:56→19:02)
[2020-07-08] MEDS: ONDANSETRON 4 MG/2 ML INJ IV ×3 (06:57→21:16)
--- NOTE | 2020-07-08 15:36 | PC.NURSE ---
PT was in intense pain sitting, did not perform standing BP
--- NOTE | 2020-07-08 15:49 | PC.NURSE ---
Post-op: Pt having pain control concerns, Dr. Joshi made aware, see new order and extra dilaudid given. Pt reports she had better pain control after med. BP low 70's - 80's systolic. MD Joshi aware. Received 1 unit of blood, no sxs of transfusion reaction. BP systolic up to 100's now. Shell left in per md order. No clots seen vag. Nausea early and received zofran and med effective. Did sit at the bedside but pt reported to painful and dizzy to go further. However over all pt reports she has improved from this morning.
--- NOTE | 2020-07-08 16:20 | PM.PN.1 ---
Subjective Subjective Date Patient Seen: 07/08/20 Time Patient Seen: 16:21 Interval history: Patient is a 45-year-old 2 para 2 postop day # 1 status post LAVH/bilateral salpingectomy/anterior and posterior repair/sacral spinous ligament fixation. Patient had postoperative bleeding from the vagina while in the recovery room and was taken back to surgery and a bleeder on the posterior wall the vagina was ligated. This morning patient's hematocrit had dropped from 25-22. This had been expected. She was very symptomatic. She was tachycardic and very lightheaded when her bed was raised even a small amount. A decision was made to transfuse with 1 unit of packed red blood cells. Patient is feeling much better. She has had some lower abdominal cramping. She has tolerated a diet. She has good urine output. Exam Vital Signs (past 8 hours): - 07/08/20 08:35 07/08/20 11:20 07/08/20 14:10 Temperature 98.3 F 97.3 F L Pulse Rate 79 77 Pulse Rate [Orthostatic Lying] 72 Respiratory Rate 14 14 Blood Pressure 85/51 L 87/54 L Blood Pressure [Orthostatic Lying] 117/52 L Blood Pressure [Orthostatic Sitting] 112/70 Pulse Oximetry 07/08/20 15:52 Temperature 98.2 F Pulse Rate 74 Pulse Rate [Orthostatic Lying] Respiratory Rate 16 Blood Pressure 106/57 L Blood Pressure [Orthostatic Lying] Blood Pressure [Orthostatic Sitting] Pulse Oximetry 100 Oxygen Delivery Method Room Air Oxygen Flow Rate 0 Narrative Exam Narrative: Generally: Patient partially sitting up in bed. No acute distress Lungs: Clear to auscultation bilaterally Cardiovascular: Regular rate and rhythm Abdomen: Soft and flat. Good bowel sounds in all 4 quadrants. Incisions: Clean dry and intact with dressings. Perineum: Dry Extremities: SCDs in place Objective Labs Result Diagrams: 07/08/20 05:05 Labs: Laboratory Results - last 24 hr 07/07/20 07/07/20 07/08/20 14:51 16:15 05:05 WBC 17.2 H RBC 2.52 L Hgb 8.4 L 7.3 L Hct 25.5 L 22.3 L MCV 88.6 MCH 29.1 MCHC 32.9 RDW 13.0 Plt Count 271 Neut % (Auto) 89.7 H Lymph % (Auto) 4.3 L [place] % (Auto) 5.8 Eos % (Auto) 0.0 L Baso % (Auto) 0.2 Neut # (Auto) 65762 H Lymph # (Auto) 700 L [place] # (Auto) 1000 H Eos # (Auto) 0 Baso # (Auto) 0 Blood Type A Positive Antibody Screen Negative Crossmatch See Detail [facility] Medical History (Updated 05/29/20 @ 14:54 by Roselyn Joshi MD) Asthma (~1984) Endometriosis Pelvic relaxation ALYSSA (stress urinary incontinence, female) Surgical History Anesthesia History of foot surgery (~2004) History of laparoscopy (~1999) History of stress incontinence procedure using tension free vaginal tape (~01/05/19) Family History Grandmother Diabetes mellitus Social History household members: spouse and children Smoking Status: Current some day smoker alcohol intake: current Assessment & Plan Assessment & Plan narrative: Assessment: 45-year-old 2 para 2 postop day # 1 status post LAVH/bilateral salpingectomy/anterior and posterior repair/sacral spinous ligament fixation as well as a returned to the operating room for a ligation of a posterior wall of the vagina bleeder. Patient is stable Plan: Leave packing and Shell catheter in place until tomorrow morning H&H this evening COVID-19 COVID-19 status: Negative Result date/Date tested (Pos, Neg/Pending): 07/06/20 Time Spent With Patient Time with patient: 25 - 35 minutes
[2020-07-08] MEDS: IBUPROFEN 600 MG TABLET PO (17:25)
[2020-07-08 17:27] LABS: Hematocrit 24.2 % (36-46)
--- NOTE | 2020-07-08 18:06 | PC.NURSE ---
Addendum entered by Christi Chao R.N. 07/08/20 19:13: c/o pain cont at 6 medicated with 0.1 dilaudid ivp and ice pack. Original Note: pt is c/o low abd pain 6/10 medicated with oxy, tylenol and ibuprofen as ordered. drsg cdi and no vag bleeding noted. kern patent and draining clear light yellow urine. with monitor. taking sm bites of dinner, call light within reach.
[2020-07-09] VITALS (9 sets, daily range): BP systolic 100–120; BP diastolic 53–66; PULSE 63–97; RESP 14–18; TEMP 36.6–37.2; O2SAT 97–98
[2020-07-09] MEDS: ACETAMINOPHEN 325 MG TABLET 650 MG PO ×5 (00:27→23:47)
[2020-07-09] MEDS: HYDROMORPHONE 0.5 MG INJ 0.1 MG IV ×2 (00:27→22:42)
[2020-07-09] MEDS: IBUPROFEN 600 MG TABLET PO ×5 (00:27→23:48)
[2020-07-09] MEDS: OXYCODONE IR 5 MG TABLET PO ×7 (01:27→21:32)
[2020-07-09] MEDS: LACTATED RINGERS 1,000 ML 100 ML IV (03:02)
[2020-07-09] MEDS: ONDANSETRON 4 MG/2 ML INJ IV ×2 (08:29→14:39)
[2020-07-09] MEDS: DOCUSATE 250 MG CAPSULE PO ×2 (08:47→20:57)
--- NOTE | 2020-07-09 09:41 | P.PN_ITS ---
Subjective Subjective Date Patient Seen: 07/09/20 Time Patient Seen: 09:41 Interval history: Patient is a 45-year-old 2 para 2 postop day # 2 status post LAVH/bilateral salpingectomy/anterior and posterior repair/sacral spinous ligament fixation. She was taken back to the operating room from PACU for brisk vaginal bleeding. A bleeder was ligated. Overnight she has had a headache. She has some intermittent nausea. She feels like she is in a lot of pain. She feels this in the suprapubic and rectal area. She is passing flatus. She has tolerated a diet. She has not ambulated as of yet. Her catheter is still in place. The vaginal packing is still in place. Exam Vital Signs (past 8 hours): - 07/09/20 05:00 07/09/20 07:47 Temperature 98.2 F 98.9 F Pulse Rate 73 82 Respiratory Rate 18 17 Blood Pressure 120/64 101/60 Pulse Oximetry 98 97 Oxygen Delivery Method Room Air Oxygen Flow Rate 0 Narrative Exam Narrative: Generally: Patient partially sitting up in bed, no acute distress Lungs: Clear to auscultation bilaterally Cardiovascular: Regular rate and rhythm Abdomen: Soft and flat. Good bowel sounds. Incisions: Clean dry and intact with dressing Perineum: Dry Vagina: The packing was removed and is dry. Extremities: Negative Homans, no edema Objective Labs Result Diagrams: 07/08/20 17:22 Labs: Laboratory Results - last 24 hr 07/07/20 07/08/20 14:51 17:22 Hgb 8.0 L Hct 24.2 L Crossmatch See Detail COUNT INCLUDES THE [facility] Medical History (Updated 05/29/20 @ 14:54 by Roselyn Joshi MD) Asthma (~1984) Endometriosis Pelvic relaxation ALYSSA (stress urinary incontinence, female) Surgical History Anesthesia History of foot surgery (~2004) History of laparoscopy (~1999) History of stress incontinence procedure using tension free vaginal tape (~01/05/19) Family History Grandmother Diabetes mellitus Social History household members: spouse and children Smoking Status: Current some day smoker alcohol intake: current Assessment & Plan Post-op Postoperative Procedures: Procedures Operation Date: 07/07/20 10:15 Actual Procedures Side Surgeon p Laparoscopic Assisted Vag Hysterectomy w/ bilateral salpingectomy, Not Applicable Roselyn Joshi MD s Anterior/Posterior repair, sacrospinous ligament fixation Not Applicable Joelle Joshi MD Operation Date: 07/07/20 14:45 Actual Procedures Side Surgeon p Exam Under Anesthesia 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 Headache. Intermittent pain control. Not ambulating much. Postoperative plan: see orders, ambulate and voiding trials Postoperative plan narrative: SCDs while in bed, incentive spirometry H&H ordered Time Spent With Patient Time with patient: 15-24 minutes
--- NOTE | 2020-07-09 15:42 | CM.IDA ---
Addendum entered by PENELOPE Go 07/10/20 12:01: DC home today w/friend, patient much improved from yesterday. No needs indicated from this SPARERIBS TRIMMER JW Original Note: Initial DCP Assessment Note Patient is a 45 yo female, resident of [facility]. Patient is POD#2 s/p LAVH/bilateral salpingectomy/anterior and posterior repair/sacral spinous ligament fixation. According to Dr Joshi's prog note, patient recovering slowly and is encouraged to ambulate, w/cath removal and voiding trials today, home likely later today or tomorrow. Patient has a friend, Bhumika Jimenez listed as primary contact PCP: Isaac Acosta Payer: [facility] No needs expected from this SPARERIBS TRIMMER... will remain available in case any DC needs or concerns arise. DANNY
--- NOTE | 2020-07-09 15:54 | PC.NURSE ---
Pt has severe headache throughout the morning and into the afternoon; mod to severe pain to pelvic region; PO oxy and scheduled tylenol and ibuprofen; mild nausea, no emesis ;IV zofran; dizziness with standing, SBP and HR WNL; patient sat to chair for very short time, severe pain to rectum/vagina; Shell removed at 1050; @ 1300 void >500 mL; PRBCs infusing; SO in room
--- NOTE | 2020-07-09 17:54 | PC.NURSE ---
Patient up and walked in halls, walked about 20 ft and turned back to the room. Patient up to chair for a hour before getting back to bed. Blood transfusion compete. Patient showered and states she feels much better. Patient's overall appearance is improved as well. Support personal Karel at bedside with patient. Patient going to eat a little dinner. Reports pain improved since sched. medications were given. See MAR for details. Call light w/in reach, bed in low pos. aware to call w/ needs to get out of bed or anything else.
[2020-07-10 00:04] VITALS: BP 105/62; PULSE 71; RESP 18; TEMP 36.9; O2SAT 100
[2020-07-10] MEDS: OXYCODONE IR 5 MG TABLET PO ×3 (00:53→11:32)
[2020-07-10 05:15] VITALS: BP 97/60; PULSE 64; RESP 18; TEMP 36.6; O2SAT 98
[2020-07-10] MEDS: IBUPROFEN 600 MG TABLET PO ×2 (05:21→11:32)
[2020-07-10] MEDS: ACETAMINOPHEN 325 MG TABLET 650 MG PO ×2 (05:22→11:29)
[2020-07-10 07:45] VITALS: BP 120/74; PULSE 66; RESP 20; TEMP 36.8; O2SAT 99
[2020-07-10] MEDS: DOCUSATE 250 MG CAPSULE PO (08:14)
--- NOTE | 2020-07-10 08:41 | PC.NURSE ---
Assess- Patient given oxycodone for complaints of headache and rectal pain from sutures. Given a cup of coffee with cream and sugar and she is going to try and eat some of her banana. She states in the last couple of days she has been taking zofran but denied nausea when pain medication give. She has 3 lap sites that are all cdi and o bleeding from vaginal area, sutures intact to glory area. Patients visitor is sleeping on the couch.
--- NOTE | 2020-07-10 11:23 | PM.DS.1 ---
History of Present Illness History of Present Illness Date Patient Seen: 07/10/20 Time Patient Seen: 09:40 Chief complaint: OPB Narrative: Patient is a 45-year-old 2 para 2 postop day # 3 status post LAVH/bilateral salpingectomy/anterior and posterior repair/sacral spinous ligament fixation. She went back to the operating room from the PACU due to vaginal bleeding. She was found to have a bleeder on the posterior wall of the vagina and this was ligated. The clots were removed and the vagina irrigated. Her postoperative course has been slow with pain management. She also had some significant nausea. On postop day # 2 the Shell catheter and the vaginal packing were removed. She was able to void without significant postvoid residual. Pain has been managed with IV Toradol which was then switched to ibuprofen, Tylenol, and oxycodone. She did have 2 units of packed red blood cells due to symptomatic anemia. Today she is feeling well. She is tolerating a diet without nausea and vomiting. She is ambulating without assistance. She is passing flatus. She does have some pain around the anus. Discharge Providers Provider Date of admission: 07/08/20 13:41 Discharge Date: 07/10/20 Primary care physician: Isaac Acosta MD Discharge provider: Roselyn Joshi MD Summary Hospital Course Discharge Diagnosis: Uterine prolapse Cystocele and rectocele Postoperative bleeding requiring trip back to the operating room to ligate the bleeder Acute blood loss anemia Hospital Course: Patient is a 45-year-old 2 para 2 who presented on July 07, 2020 for a scheduled LAVH/bilateral salpingectomy/A&P repair/sacral spinous ligament fixation. She underwent this. The procedure was complicated by a postoperative bleed which was discovered in the PACU. She was taken back to the operating room where the clots were evacuated and the bleeder was ligated. The vagina was repacked. On postop day # 2, the Shell catheter and packing were removed. She has had a slow recovery. She required 2 units of packed red blood cells for symptomatic acute blood loss anemia. Today the patient is doing well. No nausea or vomiting. Pain controlled. Voiding without the catheter. Ambulating without assistance. Tolerating a diet. Status at Discharge Cognitive/behavioral status at discharge: oriented Functional status at discharge: independent ambulation Overall status at discharge: patient is progressing back to baseline Time Spent with Patient Time spent: Less than 30 minutes Exam Vital Signs (past 8 hours): - 07/10/20 05:15 07/10/20 07:45 Temperature 97.8 F 98.2 F Pulse Rate 64 66 Respiratory Rate 18 20 Blood Pressure 97/60 120/74 Pulse Oximetry 98 99 Oxygen Delivery Method Room Air Oxygen Flow Rate 0 Narrative Exam Narrative: Generally: Patient is sitting up in bed, no acute distress Lungs: Clear to auscultation bilaterally Cardiovascular: Regular rate and rhythm Abdomen: Soft and flat. Incisions: Clean dry and intact with dressing Extremities: Negative Homans, no edema Objective Labs Result Diagrams: 07/09/20 11:13 Labs: Laboratory Results - last 24 hr 07/07/20 07/09/20 14:51 11:13 Hgb 8.0 L Hct 24.0 L Blood Type A Positive Antibody Screen Negative Crossmatch See Detail [facility] Medical History (Updated 05/29/20 @ 14:54 by Roselyn Joshi MD) Asthma (~1984) Endometriosis Pelvic relaxation ALYSSA (stress urinary incontinence, female) Surgical History Anesthesia History of foot surgery (~2004) History of laparoscopy (~1999) History of stress incontinence procedure using tension free vaginal tape (~01/05/19) Family History Grandmother Diabetes mellitus Social History household members: spouse and children Smoking Status: Current some day smoker alcohol intake: current Discharge Assessment & Plan Assessment and Plan Assessment: Postop day # 3 status post LAVH/anterior-posterior repair/bilateral salpingectomy/sacral spinous ligament fixation Returned to the operating room for ligation of bleeder Patient doing well Plan of Treatment: Discharge to home Follow-up in 2 weeks for telehealth visit Follow-up in 6 weeks for inpatient postop visit Tylenol 650 mg every 6 hours Ibuprofen 600 mg every 6 hours Stool softener twice a day until back to normal Push fluids Call with fever, chills, redness or drainage around the incisions, or bleeding vaginally more than spotting to light Discharge Plan Discharge Plan Patient Disposition: Home Provider Discharge Comment: Call with fever, chills, redness or drainage around the incisions or bleeding vaginally more than spotting to light Ibuprofen 600mg every 6 hours Tylenol 650mg every 6 hours Stool softner twice a day until back to normal Dulcolax supp tomorrow if no bowel movement Empty bladder about every 3 hours Discharge orders & Medications Prescriptions: New oxycodone 5 mg tablet 5 mg PO .Q3hr PRN (Reason: pain) Qty: 30 RF: 0 Continued ibuprofen 600 mg PO Q6HR PRN (Reason: Pain (Scale Score 1-3)) RF: 0 bwmcqfbusl-vqoduxkvhrqom-bfwb 50-325-40 mg tablet 1 tab PO Q4H PRN (Reason: pain) Qty: 20 RF: 0 Follow up/Referrals: Roselyn Joshi MD [Physician] - 2 Weeks (2 week Telehealth visit 6 week in person post op check) Diet/Activity/Treatments Diet: Regular Activity: No heavy lifting, no more than a gallon of milk Skin/Wound/Dressing Care Report to your healthcare provider any signs of infection, such as:: chills, fever, increased pain, unusual drainage and unusual redness Dressing: Remove the pink dressings with attached guaze after a shower in 2-3 days Leave steri strips in place until they fall off Visit Report/Discharge Packet Instructions: Blood Transfusion, DI for Hysterectomy, DI for Laparoscopy, DI for Prescription Opioid Use Stand Alone Forms: Surgery Discharge Discharge Data Primary Care Provider: Isaac Acosta
[2020-07-10 11:24] VITALS: BP 110/81; PULSE 66; RESP 20; TEMP 36.6; O2SAT 100
== END 2020-07-10 11:45 | disposition home or self-care (01) | DRG 908 ==
LOC: OR 14:00 → AC 14:00
PROVIDERS: Admitting Provider Anesthesiology; PCP Family Medicine; Referring Provider Obstetrics & Gynecology; Visit Provider Obstetrics & Gynecology
PROC: 0UT9FZZ Resection of Uterus, Via Natural or Artificial Opening With Percutaneous Endoscopic Assistance (ICD-10-PCS; principal; 2020-07-07 10:15)
PROC: 0W3R7ZZ Control Bleeding in Genitourinary Tract, Via Natural or Artificial Opening (ICD-10-PCS; 2020-07-07 10:15)
PROC: 0W3R7ZZ Control Bleeding in Genitourinary Tract, Via Natural or Artificial Opening (ICD-10-PCS; CPT 57410; principal; 2020-07-07 14:45)
DX: N99.820 Postprocedural hemorrhage of a genitourinary system organ or structure following a genitourinary system procedure (principal); D62 Acute posthemorrhagic anemia; N81.3 Complete uterovaginal prolapse; R51.9 Headache, unspecified; F17.210 Nicotine dependence, cigarettes, uncomplicated; R11.0 Nausea
CPT/HCPCS: 36415; 36430; 57210; 57260; 57282; 58552; 81025; 85014; 85018; 85025; 86850; 86900; 86901; 87635; P9016; J0330; J0690; J1100; J1170; J1885; J2250; J2405; J2704; J3010

== ENCOUNTER → 2021-01-16 13:10 | Outpatient (CLI) | payer MEDICARE, SELFPAY ==
[2020-07-07 18:11] VITALS: BMI 20.5
[2021-01-16 19:27] LABS: Progesterone, Total 1.69 ng/mL
[2021-01-16 19:28] LABS: Free T4, Direct Thyroxine 1.13 ng/dL (0.78-2.19)
[2021-01-16 19:42] LABS: Estradiol, Total 54.6 pg/mL; Thyroid Stimulating Hormone 0.397 uIU/mL (0.47-4.68)
== END ==
PROVIDERS: PCP Family Medicine; Visit Provider Obstetrics & Gynecology
DX: N95.1 Menopausal and female climacteric states (principal)
CPT/HCPCS: 82670; 84144; 84439; 84443

== ENCOUNTER → 2021-06-05 09:09 | Outpatient (CLI) | payer MEDICARE, SELFPAY ==
[2020-07-07 18:11] VITALS: BMI 20.5
[2021-06-06 22:06] LABS: COVID19 - ORCAS (NP or Nasal) Negative (Negative)
== END ==
PROVIDERS: PCP Family Medicine; Visit Provider Physician Assistant
DX: Z20.822 Contact with and (suspected) exposure to COVID-19 (principal)
CPT/HCPCS: C9803; U0003

== ENCOUNTER → 2021-07-06 13:08 | Outpatient (CLI) | payer MEDICARE, SELFPAY ==
[2020-07-07 18:11] VITALS: BMI 20.5
[2021-07-06 19:30] LABS: Follicle Stimulating Hormone 1.66 mIU/mL
== END ==
PROVIDERS: PCP Family Medicine; Visit Provider Obstetrics & Gynecology
DX: R23.2 Flushing (principal)
CPT/HCPCS: 83001

== ENCOUNTER → 2022-04-19 12:56 | Outpatient (CLI) | payer MEDICARE, SELFPAY ==
[2020-07-07 18:11] VITALS: BMI 20.5
--- NOTE | 2022-04-19 | DI.RAD.S_ITS ---
PROCEDURE: FL HIP INJECTION MR/CT RT INDICATIONS: right hip pain TECHNIQUE: The indications, alternatives, benefits, risks, and complications of the procedure were explained to the patient. Written informed consent was obtained and placed in the chart. The hip was examined fluoroscopically with the legs fixed in slight internal rotation, and a site for needle placement chosen for entry into the hip joint from an anterior approach. Care was taken to locate the common femoral artery and vein beforehand. The skin was prepped and draped in a sterile fashion, and 1% Lidocaine infiltrated from skin down to joint capsule. A spinal needle was inserted into the joint, and a small amount of iodinated contrast media injected to confirm intra-articular placement of the needle tip. This was followed by approximately 10 mL dilute solution of a gadolinium containing MR contrast agent. The needle was removed and a dressing was applied. The patient was given postprocedural instructions and sent to the MR suite for imaging. COMPARISON: None. FINDINGS: A single fluoroscopic spot image demonstrates intra-articular location of injected iodinated contrast. IMPRESSION: Successful fluoroscopically guided administration of dilute Gadolinium solution into the hip joint for MR arthrogram. Dictated by: Hallie Chaudhary M.D. on 04/19/2022 at 16:25 Transcribed by: ISSAC on 04/19/2022 at 16:25 Approved by: Hallie Chaudhary M.D. on 04/19/2022 at 16:51
--- NOTE | 2022-04-19 13:01 | DI.MRI.S_ITS ---
PROCEDURE: MR HIP RT W CON INDICATIONS: right hip injury TECHNIQUE: After the administration of 10 mL of dilute intra-articular Gadolinium contrast, coronal STIR of the bony pelvis; coronal and oblique axial T1 spin echo with fat saturation, axial T2 fast spin echo with fat saturation, sagittal T1 spin echo with and without fat saturation of the involved hip. COMPARISON: None. FINDINGS: Image quality: Excellent. Bones and joints: Bone marrow of the pelvic ring and proximal femurs show normal signal throughout. No intraosseous lesions or fractures. No avascular necrosis of the femoral head. The visualized lower lumbar spine appears normally aligned. The ligamental, neck, and labral plicae appear normal where visualized. Tendons and ligaments: The gluteus medius and minimus tendons appear intact, without associated muscle atrophy. The nearby proximal iliotibial band also appears intact. The iliopsoas tendon appears intact, without adjacent bursal fluid collections or evidence for impingement syndrome. The origin of the hamstring tendon is intact at the ischial tuberosity, as well as the associated sacrotuberous ligament. The straight and reflected heads of the rectus femoris muscle origin appear intact, as well as the conjoint tendon. The ligamentum teres appears intact where visualized. Labrum and cartilage: The acetabular labrum appears intact throughout. Cartilage surface of the femoral head appears of normal thickness. No paralabral cysts. The alpha angle of the femur is within normal limits at less than 55 degrees. Soft tissues: Visualized muscles demonstrate normal bulk and internal signal. Quadratus femoris muscle demonstrates no internal edema to suggest ischiofemoral impingement. The proximal sciatic neurovascular bundle appears normal adjacent to the hamstring tendons. Bladder wall thickness is normal. Bowel loops are within normal limits. 52 mm diameter right adnexal cyst. Small amount of free fluid within the pelvis. IMPRESSION: 1. Negative evaluation of the right hip and labrum. 2. Right ovarian cyst; follow-up pelvic ultrasound in 6 weeks is recommended to ensure resolution, and to exclude underlying malignancy. Dictated by: Hallie Chaudhary M.D. on 04/19/2022 at 15:35 Transcribed by: ISSAC on 04/19/2022 at 15:37 Approved by: Hallie Chaudhary M.D. on 04/19/2022 at 16:49
== END ==
PROVIDERS: PCP Family Medicine; Referring Provider Family Medicine; Visit Provider Family Medicine
DX: S79.911A Unspecified injury of right hip, initial encounter (principal); N83.291 Other ovarian cyst, right side; M25.551 Pain in right hip; X58.XXXA Exposure to other specified factors, initial encounter
CPT/HCPCS: 27093; 73722; 77002

== ENCOUNTER → 2022-05-07 13:21 | Outpatient (CLI) | payer MEDICARE, SELFPAY ==
[2020-07-07 18:11] VITALS: BMI 20.5
--- NOTE | 2022-05-07 13:22 | DI.US.S_ITS ---
PROCEDURE: US PELVIC COMPLETE INDICATIONS: RIGHT OVARIAN CYST TECHNIQUE: Real-time scanning was performed of the pelvic organs, with image documentation. Additional endovaginal scanning was necessary due to incomplete visualization of the adnexal and endometrial structures by transabdominal scanning. COMPARISON: US, [facility]ETRICAL LTD, 11/24/2013, 11:44. US, OB COMPLETE 14WKS OR MORE, 07/21/2013, 13:33. FINDINGS: Uterus: Uterus is removed. Ovaries: The right ovary measures 3.8 x 2.2 x 3.5 cm, with a calculated ovarian volume of 14.8 cc. The left ovary measures 2.5 x 1.3 x 1.8 cm, with a calculated ovarian volume of 2.9 cc. Within the right ovary, there is a focus of heterogeneous echogenicity measuring 2.3 x 1.3 x 1.8 cm. There is increased peripheral vascularity. Multiple similar smaller areas are identified within the right ovary the largest measuring 1.7 cm. Other: No pathologic free abdominal or pelvic fluid. IMPRESSION: Focus of heterogeneous echogenicity within the right ovary most suggestive of hemorrhagic cysts. Additional smaller foci are present which may represent involuting cyst versus prominent follicles. We strive to produce accurate, complete, and clear reports of imaging services. To assist us in improving patient care, this report was composed using standard report templates and voice recognition software. Therefore, it may contain abnormal punctuation, insertions and/or omissions. Occasional wrong-word or sound-alike substitutions may occur. Though we review the report and make efforts to correct it, we do recommend that the report be read carefully in proper context to recognize any text inaccuracies. Dictated by: Millie Arnold M.D. on 05/07/2022 at 17:15 Approved by: Millie Arnold M.D. on 05/07/2022 at 17:17
--- NOTE | 2022-05-07 13:22 | DI.MG.S_ITS ---
BILATERAL DIGITAL SCREENING MAMMOGRAM 3D/2D WITH CAD: 05/07/2022 CLINICAL: Baseline exam. Routine screening. No prior exams were available for comparison. Both breasts are extremely dense, which lowers the sensitivity of mammography (category d />75% glandular tissue). Current study was also evaluated with a Computer Aided Detection (CAD) system. No significant masses, calcifications, or other findings are seen in either breast. IMPRESSION: NEGATIVE There is no mammographic evidence of malignancy. A 1 year screening mammogram is recommended. Please note patient's elevated lifetime risk and additional recommendation for MRI screening. Based on Tyrer-Cuzick model (a risk assessment model), the patient's lifetime risk is 22.3% and her 10 year risk is 4.3%. If a patient has an elevated risk, a more comprehensive evaluation should be considered and/or a referral to a genetic counselor. The [place] [employer], [employer], and NCCN Guidelines advise the consideration of Breast MRI as an adjunct to screening mammography in patients whose Lifetime risk to develop breast cancer is 20% or higher. This exam was interpreted at Station ID: [id number]. NOTE: For mammograms, a report in lay terms will be sent to the patient. Approximately 15% of breast malignancies will not be visualized mammographically. In the management of a palpable breast mass, a negative mammogram must not discourage biopsy of a clinically suspicious lesion. Electronically Signed By: Jose Jerome M.D. lc/:05/07/2022 15:49:51 letter sent: Normal Exam ACR BI-RADS Category 1: Negative [id number]
== END ==
PROVIDERS: PCP Family Medicine; Referring Provider Obstetrics & Gynecology; Visit Provider Obstetrics & Gynecology
DX: Z12.31 Encounter for screening mammogram for malignant neoplasm of breast (principal); N83.201 Unspecified ovarian cyst, right side
CPT/HCPCS: 76856; 77063; 77067

== ENCOUNTER → 2022-05-10 13:05 | Outpatient (CLI) | payer MEDICARE, SELFPAY ==
[2020-07-07 18:11] VITALS: BMI 20.5
[2022-05-11 09:47] LABS: Cancer Antigen 125 < 5.5 U/mL (0-35)
== END ==
PROVIDERS: PCP Family Medicine; Visit Provider Obstetrics & Gynecology
DX: N83.209 Unspecified ovarian cyst, unspecified side (principal); R14.0 Abdominal distension (gaseous)
CPT/HCPCS: 86304

== ENCOUNTER 2022-09-25 15:45 | Outpatient (RCR) | payer MEDICARE, SELFPAY ==
[2020-07-07 18:11] VITALS: BMI 20.5
--- NOTE | 2022-09-25 17:57 | PT.OIE ---
Current Diagnoses Pain in right hip (09/25/22) Pelvic and perineal pain (09/25/22) Past Medical History (Last Updated 08/16/21 @ 15:48 by Roselyn Joshi MD) Anorexia Anxiety disorder, unspecified Asthma (~1984) Complex partial seizure disorder Endometriosis abnormality affecting management of mother Major depressive disorder, single episode, unspecified Panic disorder [episodic paroxysmal anxiety] ALYSSA (stress urinary incontinence, female) Zoster without complications Past Surgical History (Last Updated 08/30/22 @ 08:44 by Maryam Snowden RN) Anesthesia History of foot surgery (~2004) History of laparoscopic-assisted vaginal hysterectomy (07/07/20) History of laparoscopy (~1999) History of stress incontinence procedure using tension free vaginal tape (~01/05/19) Visit Care Team Role Provider Type Isaac Acosta MD Family Provider Physician Primary Care Provider Specialty: Family Practice Address: [address], [address] Email: [email or web address] Roselyn Joshi MD Attending Provider Physician Referring Provider Specialty: Gynecology [employer] Address: [address] [place] [address], [facility] Email: [email or web address] Physical Therapy Initial Evaluation PT-OP-A Visit Information Start: 09/25/22 16:00 Freq: Status: Active Protocol: Document 09/25/22 16:00 [facility] (Rec: 09/25/22 17:26 [facility] [id number]) Out-Patient Physical Therapy Visit Information Visit Information Visit Type Initial Evaluation Visit Start Time 16:00 Visit Stop Time 16:55 Total Visit Minutes 55 Visit Number 1 Evaluation Information Evaluation Date 09/25/22 PT-OP-B Current Condition Start: 09/25/22 16:00 Freq: Status: Active Protocol: Document 09/25/22 16:00 [facility] (Rec: 09/25/22 17:26 [facility] [id number]) Current Condition History of Current Condition Onset Date December 2021 Current Complaints right sided hip pain 2/10 with hip ER 8/10 pain History of Current Condition history of R ovarian cyst and right sided hip pain She has had 2 surgeries the first one being a sling for her bladder and the second one was a full pelvic reconstruction in July 2020. 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 She laid in bed with covid for a month right before that happened. SHe feels it is painful as well as it stops. [place] is difficult Its super hard to move and its been this way for so long. She cant cross her leg in sitting PT-OP-C Subjective Start: 09/25/22 16:00 Freq: Status: Active Protocol: Document 09/25/22 16:00 [facility] (Rec: 09/26/22 10:27 [facility] [id number]) OP-PT Pain Assessment Location right anterior hip Pain Location Details pain in the right anterior hip Scale Used Numeric (0 - 10) Description- Other if pt moves her hip into ER her pain increases to a 8-9/10 at rest pain is Frequency Intermittent Variations/Patterns with hip ER especially if also in hip flexion PT-OP-F Manual Assessment Start: 09/25/22 16:00 Freq: Status: Active Protocol: Document 09/25/22 16:00 [facility] (Rec: 09/25/22 17:30 [facility] [id number]) Manual Assessments Soft Tissue Assessment Soft Tissue Mobility Assessment iliopsoas tightness B with betzaida test Joint Mobility Assessment Joint Mobility Assessment SI instability with + ASLR test when lifting the left leg the right side unlocks, right leg longer in supine, pt presents with pain with hip ER in a hip flexed position, there is a empty end feel PT-OP-I Pelvic Floor Start: 09/25/22 16:00 Freq: Status: Active Protocol: Document 09/25/22 16:00 [facility] (Rec: 09/26/22 10:22 [facility] [id number]) Pelvic Floor Assessment Pelvic Clock Pelvic Clock 3-6 Guarding,Tenderness,Tightness Contraction Ability Manual Muscle Testing Left 3 Manual Muscle Testing Right 3 Manual Muscle Testing Anterior 3 Manual Muscle Testing Posterior 3 Comments Pelvic Floor Comments there is no tenderness along the right lateral denson of the levator ani, the left lateral wall is guarded and tight with tenderness to palpation. No scar tissue noted along the right lateral wall. I did palpate the deep hip ER, the obturator internus and was unable to elicit any tenderness right side. PT-OP-J Posture/Palpation/Skin Start: 09/25/22 16:00 Freq: Status: Active Protocol: Document 09/25/22 16:00 [facility] (Rec: 09/26/22 10:18 [facility] [id number]) Posture Evaluation Comments Posture Comments pt stands in a position of gluteal guarding and a posterior pelvic tilt, she sits in a sacral sit position Palpation Assessment Location right adductor attachment to the pubic ramus Palpation Findings Soft Tissue Tightness,Muscle Guarding,Tenderness PT-OP-K Range of Motion Start: 10/02/22 17:55 Freq: Status: Active Protocol: Document 09/25/22 17:55 [facility] (Rec: 10/02/22 17:57 [facility] [id number]) Hip Goniometric Range of Motion Hip Right Hip ROM WFL Yes Testing Position Supine External Rotation 25 Comments pain with hip external rotation combined with hip flexion, full hip flexion ROM without any c/o anterior pinching pain Hip ROM Limitations Hip ROM Limitations Pain Comments pain with hip ER PT-OP-M Strength Start: 09/25/22 16:00 Freq: Status: Active Protocol: Document 09/25/22 17:57 [facility] (Rec: 10/02/22 17:57 [facility] [id number]) Hip Strength Hip Manual Muscle Testing Left Flexion (L2) 4- Good- Abduction 4- Good- External Rotation 2+ Poor+ PT-OP-Q Treatments Start: 09/25/22 16:00 Freq: Status: Active Protocol: Document 09/25/22 16:00 [facility] (Rec: 09/25/22 17:29 [facility] [id number]) Therapeutic Exercises Supine Exercises quadruped rock backs Reps/Minutes 10 reps 1-2 times per day Comments pt was educated in using a strap to provide a inferior glide with rock back Manual Therapy Treatment Joint Mobilizations MWM hip lateral glide with hip ER Reps/Duration x 10 reps MWM hip distraction with flexion Joint right hip Direction interior glide Body Position Hooklying Reps/Duration x 10 reps PT-OP-T Assessment and Plan Start: 09/25/22 16:00 Freq: Status: Active Protocol: Document 09/25/22 16:00 [facility] (Rec: 09/27/22 17:18 [facility] [id number]) Physical Therapy Assessment Rehab Potential Rehabilitation Potential Good Evaluation Complexity Number of Personal Factors/Comorbidities 0 Number of Body Systems Impaired 1-2 Clinical Presentation at Evaluation Stable Impairments Impairments Activity Tolerance,Functional Activities,Pain,Posture,ROM, Soft Tissue Mobility,Strength, Tone Goals 3 Impairment Decreased right hip ER combined with flexion creating anterior hip pain Usp Goal (LTG) With manual therapy techniques Blanca is able to improve her painfree hip ROM into hip ER. LTG Duration 12 weeks 2 Impairment SI instability with + ASLR test Short Term Goal (STG) pt is educated in SI stabilization exercises to promote hip mobility with out the SI rocking STG Duration 4 weeks Almond Huller Goal (LTG) Blanca is able to perform a supine march with core activation without her pelvis rocking LTG Duration 12 weeks 1 Impairment hip pain rated 8-9/10 if pt ER her right hip especially with hip flexion, pain is rated 2/ 10 at rest Usp Goal (LTG) Giovanni reports a overall reduction in hip pain and has improved ability to perform hip ER LTG Duration 12 weeks Assessment Summary Assessment Blanca is a 47 year old female referred to PT with right sided hip pain that started with a insidious onset after being sick with covid in December of 2021. Pain is rated as a 2/10 at rest and 8/10 with hip ER. Hip flexion with hip ER is severly painful. 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 She was referred to a PT on [place] who felt she had a labral tear. She was sent for a MRI but no tear was found. A right ovarian cyst was found on MRI. With exam today she does present with a empty end feel for hip flexion combined with hip ER. She is able to perform full hip flexion though without pain. There is tightness in the adductors on the right side and there is some tightness in the iliopsoas B. Her SI does show signs of instability as she rocks in her pelvis with any hip movement in a supine position. She test + for ASLR test on the left affecting the right SI joint. Right leg is longer in supine . I did do a pelvic floor exam as she has a history of pelvic surgery with a TVT sling. There was no reproduction of pain with pelvic floor examination, no pain over the deep hip ER ( obturator internus), no pain at the sacralspinous ligament. She is able to contract all denson of her levator ani but she does have some weakness of the pelvic floor. I did try some gentle hip inferior glides today and hip WMW for ER. She did not gain any immediate relief with this. It does seem that the pain is centralized from the anterior hip and labral region, however SI instability could be contributing to her pain. PT will work on stabilizing the SI joint and working on improving hip mobility into ER with manual therapy techniques. I did feel she may benefit from a ortho consult as well as she has not seen ortho yet. Physical Therapy Plan Frequency and Duration Frequency of Treatment 1x/Week Duration of treatment (weeks) 12 Plan of Care Start Date 09/25/22 Plan of Care End Date 12/18/22 Therapeutic Interventions Therapeutic Interventions Home Exercise Program,Manual Therapy,Neuromuscular Re- education,Patient/Caregiver Education,Self-Care/Home Management,Soft Tissue Mobilization,Therapeutic Exercises Next Visit Focus/Plan Next Note Type Treatment Note Next Visit Plan Work on manual therapy treatments focusing on decompression of the right hip , SI stabilization exercises and inner core stability.
--- NOTE | 2022-09-25 17:58 | PT.OPPOC ---
Physical, Occupational & Speech Therapy At [facility] Current Diagnoses Pain in right hip (09/25/22) Pelvic and perineal pain (09/25/22) Visit Care Team Role Provider Type Isaac Acosta MD Family Provider Physician Primary Care Provider Specialty: Family Practice Address: [address], [place], [address] Email: [email or web address] 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 Address: [address] [place] [address], [id number] Email: [email or web address] Plan Of Care PT-OP-T Assessment and Plan Start: 09/25/22 16:00 Freq: Status: Active Protocol: Document 09/25/22 16:00 [facility] (Rec: 09/27/22 17:18 [facility] [id number]) Physical Therapy Assessment Rehab Potential Rehabilitation Potential Good Evaluation Complexity Number of Personal Factors/Comorbidities 0 Number of Body Systems Impaired 1-2 Clinical Presentation at Evaluation Stable Impairments Impairments Activity Tolerance,Functional Activities,Pain,Posture,ROM, Soft Tissue Mobility,Strength, Tone Goals 3 Impairment Decreased right hip ER combined with flexion creating anterior hip pain Chief Specialist Leed Goal (LTG) With manual therapy techniques Blanca is able to improve her pain free hip ROM into hip ER. LTG Duration 12 weeks 2 Impairment SI instability with + ASLR test Short Term Goal (STG) pt is educated in SI stabilization exercises to promote hip mobility with out the SI rocking STG Duration 4 weeks [facility] Goal (LTG) Blanca is able to perform a supine march with core activation without her pelvis rocking LTG Duration 12 weeks 1 Impairment hip pain rated 8-9/10 if pt ER her right hip especially with hip flexion, pain is rated 2/ 10 at rest [facility] Goal (LTG) Blanca reports a overall reduction in hip pain and has improved ability to perform hip ER LTG Duration 12 weeks Assessment Summary Assessment Blanca is a 47 year old female referred to PT with right sided hip pain that started with a insidious onset after being sick with covid in December of 2021. Pain is rated as a 2/10 at rest and 8/10 with hip ER. Hip flexion with hip ER is severely painful. 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 She was referred to a PT [place] who felt she had a labral tear. She was sent for a MRI but no tear was found. A right ovarian cyst was found on MRI. With exam today she does present with a empty end feel for hip flexion combined with hip ER. She is able to perform full hip flexion though without pain. There is tightness in the adductors on the right side and there is some tightness in the iliopsoas B. Her SI does show signs of instability as she rocks in her pelvis with any hip movement in a supine position. She test + for ASLR test on the left affecting the right SI joint. Right leg is longer in supine . I did do a pelvic floor exam as she has a history of pelvic surgery with a TVT sling. There was no reproduction of pain with pelvic floor examination, no pain over the deep hip ER ( obturator internus), no pain at the sacral spinous ligament. She is able to contract all denson of her levator ani but she does have some weakness of the pelvic floor. I did try some gentle hip inferior glides today and hip WMW for ER. She did not gain any immediate relief with this. It does seem that the pain is centralized from the anterior hip and labral region, however SI instability could be contributing to her pain. PT will work on stabilizing the SI joint and working on improving hip mobility into ER with manual therapy techniques. I did feel she may benefit from a ortho consult as well as she has not seen ortho yet. Physical Therapy Plan Frequency and Duration Frequency of Treatment 1x/Week Duration of treatment (weeks) 12 Plan of Care Start Date 09/25/22 Plan of Care End Date 12/18/22 Therapeutic Interventions Therapeutic Interventions Home Exercise Program,Manual Therapy,Neuromuscular Re- education,Patient/Caregiver Education,Self-Care/Home Management,Soft Tissue Mobilization,Therapeutic Exercises Next Visit Focus/Plan Next Note Type Treatment Note Next Visit Plan Work on manual therapy treatments focusing on decompression of the right hip , SI stabilization exercises and inner core stability. Plan of Care Dates Plan of Care Start Date 09/25/22 Plan of Care End Date 12/18/22 Electronically Signed by: Sariah Jurado, PT 10/02/22 1759 If you are in agreement with this Plan of Care, please return a signed and dated copy. I have reviewed this Plan of Care and certify that the skilled therapy services above are required to meet the patient?s needs. Physician Signature Date Printed Name and Credentials Clinical Instructor Signature Printed Name and Credentials
--- NOTE | 2023-01-15 11:04 | PT.OPDS ---
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 Obstetrics Address: [address] [place] [address], [id number] Email: [email or web address] Visit Number Visit Number 1 Discharge Summary PT-OP-B Current Condition Start: 09/25/22 16:00 Freq: Status: Active Protocol: Document 09/25/22 16:00 [facility] (Rec: 09/25/22 17:26 [facility] [id number]) Current Condition History of Current Condition Onset Date December 2021 Current Complaints right sided hip pain 2/10 with hip ER 8/10 pain History of Current Condition history of R ovarian cyst and right sided hip pain She has had 2 surgeries the first one being a sling for her bladder and the second one was a full pelvic reconstruction in July 2020. 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 She laid in bed with covid for a month right before that happened. SHe feels it is painful as well as it stops. [place] is difficult Its super hard to move and its been this way for so long. She cant cross her leg in sitting PT-OP-C Subjective Start: 09/25/22 16:00 Freq: Status: Active Protocol: Document 09/25/22 16:00 [facility] (Rec: 09/26/22 10:27 [facility] [id number]) OP-PT Pain Assessment Location right anterior hip Pain Location Details pain in the right anterior hip Scale Used Numeric (0 - 10) Description- Other if pt moves her hip into ER her pain increases to a 8-9/10 at rest pain is Frequency Intermittent Variations/Patterns with hip ER especially if also in hip flexion PT-OP-F Manual Assessment Start: 09/25/22 16:00 Freq: Status: Active Protocol: Document 09/25/22 16:00 [facility] (Rec: 09/25/22 17:30 [facility] [id number]) Manual Assessments Soft Tissue Assessment Soft Tissue Mobility Assessment iliopsoas tightness B with betzaida test Joint Mobility Assessment Joint Mobility Assessment SI instability with + ASLR test when lifting the left leg the right side unlocks, right leg longer in supine, pt presents with pain with hip ER in a hip flexed position, there is a empty end feel PT-OP-I Pelvic Floor Start: 09/25/22 16:00 Freq: Status: Active Protocol: Document 09/25/22 16:00 [facility] (Rec: 09/26/22 10:22 [facility] [id number]) Pelvic Floor Assessment Pelvic Clock Pelvic Clock 3-6 Guarding,Tenderness,Tightness Contraction Ability Manual Muscle Testing Left 3 Manual Muscle Testing Right 3 Manual Muscle Testing Anterior 3 Manual Muscle Testing Posterior 3 Comments Pelvic Floor Comments there is no tenderness along the right lateral denson of the levator ani, the left lateral wall is guarded and tight with tenderness to palpation. No scar tissue noted along the right lateral wall. I did palpate the deep hip ER, the obturator internus and was unable to elicit any tenderness right side. PT-OP-J Posture/Palpation/Skin Start: 09/25/22 16:00 Freq: Status: Active Protocol: Document 09/25/22 16:00 [facility] (Rec: 09/26/22 10:18 [facility] [id number]) Posture Evaluation Comments Posture Comments pt stands in a position of gluteal guarding and a posterior pelvic tilt, she sits in a sacral sit position Palpation Assessment Location right adductor attachment to the pubic ramus Palpation Findings Soft Tissue Tightness,Muscle Guarding,Tenderness PT-OP-K Range of Motion Start: 10/02/22 17:55 Freq: Status: Active Protocol: Document 09/25/22 17:55 [facility] (Rec: 10/02/22 17:57 [facility] [id number]) Hip Goniometric Range of Motion Hip Right Hip ROM WFL Yes Testing Position Supine External Rotation 25 Comments pain with hip external rotation combined with hip flexion, full hip flexion ROM without any c/o anterior pinching pain Hip ROM Limitations Hip ROM Limitations Pain Comments pain with hip ER PT-OP-M Strength Start: 09/25/22 16:00 Freq: Status: Active Protocol: Document 09/25/22 17:57 [facility] (Rec: 10/02/22 17:57 [facility] [id number]) Hip Strength Hip Manual Muscle Testing Left Flexion (L2) 4- Good- Abduction 4- Good- External Rotation 2+ Poor+ PT-OP-T Assessment and Plan Start: 09/25/22 16:00 Freq: Status: Active Protocol: Document 01/15/23 11:03 [facility] (Rec: 01/15/23 11:04 [facility] [id number]) Physical Therapy Assessment Assessment Summary Assessment Igor has not returned to PT since her initial visit . She will be discharged from PT at this time Physical Therapy Plan Discharge Physical Therapy Discharge Reasons No Longer Attending PT
== END 2023-01-21 08:02 | disposition home or self-care (01) ==
LOC: PHYS 15:45
PROVIDERS: Family Provider Family Medicine; PCP Family Medicine; Referring Provider Obstetrics & Gynecology; Visit Provider Obstetrics & Gynecology
DX: M25.551 Pain in right hip (principal); R10.2 Pelvic and perineal pain
CPT/HCPCS: 97110; 97161

== ENCOUNTER → 2024-01-28 13:56 | Outpatient (CLI) | payer MEDICARE, SELFPAY ==
[2020-07-07 18:11] VITALS: BMI 20.5
--- NOTE | 2024-01-28 13:58 | DI.MRI.S_ITS ---
PROCEDURE: MR PELVIS WO/W CON INDICATIONS: PELVIC AND PERINEAL PAIN TECHNIQUE: Coronal HASTE, sagittal breath-hold T2 FSE; axial T1 FSE with and without fat saturation through the pelvis. Optional long- and short-axis uterine nonbreath-hold T2 FSE through the uterus. Sagittal or axial dynamic VIBE during administration of contrast. Post-contrast axial or coronal VIBE/2-D FLASH with fat saturation from the iliac crests to the symphysis. Optional diffusion weighted imaging and ADC may be performed. COMPARISON: None. FINDINGS: Image quality: Diagnostic. Uterus/Vagina: Hysterectomy. Blooming artifact on the GRE sequences within the lower 3rd of the vagina, likely indicating prior surgery or stitches. Adnexa: Ovaries are not visualized. Urinary system: Bladder wall is normal in thickness. Distal ureters are non distended. Urethra appears normal in morphology. Nodes and vessels: No pelvic or inguinal adenopathy by size criteria. Iliac vessels are normal in size. Bowel and peritoneum: No pathologic free pelvic fluid. Inferior colon and small bowel loops are normal in caliber. Soft tissues: No inguinal hernias. No findings of pelvic floor incompetence in the absence of provocation. Bones: Marrow demonstrates normal overall signal. IMPRESSION: Hysterectomy. Ovaries not visualized. Surgical changes of the lower vagina, likely due to remote surgery or stitches. No other pathology. Dictated by: Haim Villagomez M.D. on 01/28/2024 at 16:38 Approved by: Haim Villagomez M.D. on 01/28/2024 at 16:46
== END ==
LOC: MRI 13:56
PROVIDERS: Family Provider Family Medicine; PCP Family Medicine; Referring Provider Family Medicine; Visit Provider Family Medicine
DX: R10.2 Pelvic and perineal pain (principal); R10.31 Right lower quadrant pain; Z90.710 Acquired absence of both cervix and uterus
CPT/HCPCS: 72197; A9579